=== PATIENT | female | born 1975 ===

== ENCOUNTER 2016-10-03 12:22 | Inpatient (IN) | payer OTHER ==
[2016-10-03 18:34] VITALS: BMI 23.3
--- NOTE | 2016-10-03 19:21 | HP ---
CIWA Score - CIWA Score Nausea/Vomitin-Mild Nausea/No Vomiting Muscle Tremors: 4-Moderate,w/Arms Extend Anxiety: 5 Agitation: 5 Paroxysmal Sweats: 2 Orientation: 3-Disoriented Date>2 days Tacttile Disturbances: 0-None Auditory Disturbances: 0-None Visual Disturbances: 0-None Headache: 0-None Present CIWA-Ar Total Score: 20 Admission ROS BHS - HPI Chief Complaint: withdrawal sx Allergies/Adverse Reactions: Allergies Allergy/AdvReac Type Severity Reaction Status Date / Time No Known Allergies Allergy Verified 10/03/16 21:34 History of Present Illness: 41 years old female with long history of alcohol nicotine dependence denies medical denies mental illness is admitted to detox Exam Limitations: No Limitations - Ebola screening Have you traveled outside of the country in the last 21 days: No Have you had contact with anyone from an Ebola affected area: No Have you been sick,other than usual withdrawal symptoms: No Do you have a fever: No - Review of Systems Constitutional: Chills, Changes in sleep, Weight Stable EENT: reports: No Symptoms Reported Respiratory: reports: No Symptoms reported Cardiac: reports: No Symptoms Reported GI: reports: Nausea, Poor Fluid Intake, Abdominal cramping : reports: No Symptoms Reported Musculoskeletal: reports: No Symptoms Reported Integumentary: reports: Change in Color (waist down), Erythema, Rash Neuro: reports: Tremors Endocrine: reports: No Symptoms Reported Hematology: reports: No Symptoms Reported Psychiatric: reports: Judgement Intact, Depressed Other Systems: Reviewed and Negative Patient History - Patient Medical History Hx Anemia: No Hx Asthma: No Hx Chronic Obstructive Pulmonary Disease (COPD): No Hx Cancer: No Hx Cardiac Disorders: No Hx Congestive Heart Failure: No Hx Hypertension: No Hx Hypercholesterolemia: No Hx Pacemaker: No HX Cerebrovascular Accident: No Hx Seizures: No Hx Dementia: No Hx Diabetes: No Hx Gastrointestinal Disorders: No Hx Liver Disease: No Hx Genitourinary Disorders: No Hx Sexually Transmitted Disorders: No Hx Renal Disease (ESRD): No Hx Thyroid Disease: No Hx Human Immunodeficiency Virus (HIV): No Hx Hepatitis C: No Hx Depression: Yes Hx Suicide Attempt: No Hx Bipolar Disorder: No Hx Schizophrenia: No - Patient Surgical History Past Surgical History: Yes Hx Section: Yes Anesthesia Reaction: No - PPD History Previous Implant?: Yes Documented Results: Negative w/o proof Implanted On Prior [facility] Admission?: No PPD to be Administered?: Yes - Reproductive History Patient is a Female of Child Bearing Age (11 -55 yrs old): Yes Last Menstrual Period: 09/02/16 Patient : No - Smoking Cessation Smoking history: Current every day smoker Have you smoked in the past 12 months: Yes Aproximately how many cigarettes per day: 20 Cigars Per Day: 0 Hx Chewing Tobacco Use: No Initiated information on smoking cessation: Yes 'Breaking Loose' booklet given: 10/03/16 - Substance & Tx. History Hx Alcohol Use: Yes Hx Substance Use: No Substance Use Type: Alcohol Hx Substance Use Treatment: Yes - Substances Abused Alcohol Route: Oral Frequency: Daily Amount used: [id number] Age of first use: 37 Date of Last Use: 10/03/16 Family Disease History - Family Disease History Family Disease History: Other: Father (no contact) Other Family History: only child Admission Physical Exam BHS - Vital Signs Vital Signs: Vital Signs - 24 hr 10/03/16 18:32 Temperature 98.3 F Pulse Rate 112 H Respiratory 18 Rate Blood Pressure 142/89 - Physical General Appearance: Yes: Appropriately Dressed, Moderate Distress, Thin, Tremorous, Irritable, Sweating, Anxious HEENTM: Yes: Hearing grossly Normal, Normal ENT Inspection, Normocephalic, Normal Voice Respiratory: Yes: Chest Non-Tender, Lungs Clear, Normal Breath Sounds, No Respiratory Distress, No Accessory Muscle Use Neck: Yes: Supple, Trachea in good position Breast: Yes: Breasts Symetrical Cardiology: Yes: Regular Rhythm, S1, S2, Tachycardia Abdominal: Yes: Non Tender, Soft Genitourinary: Yes: Within Normal Limits Back: Yes: Normal Inspection Musculoskeletal: Yes: full range of Motion, Gait Steady Extremities: Yes: Normal Range of Motion, Tremors, Erythema (waist down) Neurological: Yes: Alert, Motor Strength 5/5, Normal Response, Depressed Affect Integumentary: Yes: Warm, Erythema, Other (flaky waist down) Lymphatic: Yes: Within Normal Limits - Diagnostic (1) Alcohol dependence with uncomplicated withdrawal Status: Acute (2) Contact lens overwear Status: Chronic Qualifiers: Qualified Code(s): H18.823 - Corneal disorder due to contact lens, bilateral (3) Nicotine dependence Status: Acute Qualifiers: Qualified Code(s): F17.213 - Nicotine dependence, cigarettes, with withdrawal (4) Skin abrasion Status: Acute Comment: wast down multiple flaky demarkated (5) Post- depression Status: Chronic Cleared for Admission [facility] - Detox or Rehab [facility] Level of Care: Medically Managed Detox Regimen/Protocol: Librium [facility] Breath Alcohol Content Breath Alcohol Content: 0 Urine Pregancy Test - Result Urine Test Results: Negative- NO Line Present Urine Drug Screen - Results Drug Screen Negative: Yes
[2016-10-03] MEDS ORDERED: P-EPHED 60MG/TRIPROLIDI 2.5MG TABLET PO PRN (19:39)
[2016-10-03] MEDS ORDERED: MAGNESIUM CITRATE 300 ML BOTTLE PO PRN (19:39)
[2016-10-03] MEDS ORDERED: MAGNESIUM HYDROX 2400MG/30ML ORAL SUSPENSION 30 ML CUP PO PRN (19:39)
[2016-10-03] MEDS ORDERED: chlordiazePOXIDE HCL 25 MG CAPSULE PO PRN (19:39)
[2016-10-03] MEDS ORDERED: hydrOXYzine PAMOATE 50 MG CAPSULE (FP) PO PRN (19:39)
[2016-10-03] MEDS ORDERED: ACETAMINOPHEN 325 MG TABLET (FP) PO PRN (19:39)
[2016-10-03] MEDS ORDERED: LOPERAMIDE HCL 2 MG CAPSULE PO PRN (19:39)
[2016-10-03] MEDS ORDERED: guaiFENesin/D-METHORPHAN HB 10 ML UNIT-DOSE CUPS PO PRN (19:39)
[2016-10-03] MEDS ORDERED: MAG HYDROX/AL HYDROX/SIMETH 30 ML UNIT-DOSE CUP PO PRN (19:39)
[2016-10-03] MEDS ORDERED: MENTHOL/PHENOL 1 EACH UD MM PRN (19:39)
[2016-10-03] MEDS ORDERED: NICOTINE POLACRILEX 4 MG GUM BC PRN (19:39)
[2016-10-03] MEDS ORDERED: chlordiazePOXIDE HCL 25 MG CAPSULE PO ONE (19:39)
[2016-10-03] MEDS ORDERED: diphenhydrAMINE HCL 50 MG CAPSULE PO PRN (19:39)
[2016-10-03] MEDS ORDERED: IBUPROFEN 400 MG TABLET (FP) PO PRN (19:39)
[2016-10-03] MEDS ORDERED: COLLOIDAL OATMEAL 1 BAR EACH TP PRN (19:43)
--- NOTE | 2016-10-03 21:16 | PN ---
[facility] Progress Note Note: response to medical emergency received report that the patient had seizure, head on ground, blood on white sheets noted, pressure applied observed patient eyes open, single simple word, attempted lift head up, around 7 cm half mood shape soft swelling at junction of temporal and occipiital bp 134/88 ap 114 911 was called, report provided to er
[2016-10-03] MEDS ORDERED: THIAMINE HCL 100 MG TABLET (FP) PO SCH (22:00)
[2016-10-03] MEDS ORDERED: AMOXICILLIN 500 MG CAPSULE (FP) PO SCH (22:00)
[2016-10-03] MEDS ORDERED: HYDROCORTISONE 1% TOPICAL OINT 30 GM TUBE TP SCH (22:00)
[2016-10-03] MEDS ORDERED: MINERAL OIL/PETROLAT/WATER TOPICAL CREAM 113 GM JAR TP SCH (22:00)
[2016-10-03 22:58] LABS: URINE APPEARANCE CLEAR; URINE BILIRUBIN NEGATIVE (NEGATIVE); URINE BLOOD NEGATIVE (NEGATIVE); URINE COLOR LTYELLOW; URINE GLUCOSE (UA) NEGATIVE (NEGATIVE); URINE KETONE NEGATIVE (NEGATIVE); URINE NITRITE NEGATIVE (NEGATIVE); URINE PROTEIN NEGATIVE (NEGATIVE); URINE UROBILINOGEN NEGATIVE E.U./dl (0.2-1.0)
[2016-10-03] MEDS ORDERED: chlordiazePOXIDE HCL 25 MG CAPSULE PO SCH (23:00)
[2016-10-03 23:09] LABS: URINE LEUK ESTERASE TRACE (NEGATIVE)
[2016-10-03 23:10] LABS: URINE BACTERIA RARE /hpf (NONE SEEN); URINE MUCUS RARE; URINE RBC <1 /hpf (0-3); URINE WBC <1 /hpf (3-5)
[2016-10-04 00:20] VITALS: BP 152/92; PULSE 132; TEMP 98
[2016-10-04] MEDS ORDERED: PRENATAL VITAMINS W/ FOLIC ACID TABLET (FP) PO SCH (10:00)
[2016-10-04] MEDS ORDERED: NICOTINE 21 MG/24 HOURS TOPICAL PATCH TD SCH (10:00)
--- NOTE | 2016-10-04 11:24 | EKG ---
Test Reason : Blood Pressure : / mmHG Vent. Rate : 128 BPM Atrial Rate : 128 BPM P-R Int : 158 ms QRS Dur : 074 ms QT Int : 298 ms P-R-T Axes : 052 045 023 degrees QTc Int : 435 ms SINUS TACHYCARDIA SEPTAL INFARCT , AGE UNDETERMINED ABNORMAL ECG NO PREVIOUS ECGS AVAILABLE Confirmed by SAMPSON GRANT MD ([id number]) on 10/04/2016 11:23:51 AM Referred By: Confirmed By:SAMPSON GRANT MD
[2016-10-04] MEDS ORDERED: chlordiazePOXIDE HCL 25 MG CAPSULE PO SCH (23:00)
[2016-10-05] MEDS ORDERED: chlordiazePOXIDE 5 MG CAPSULE PO SCH (23:00)
[2016-10-06] MEDS ORDERED: chlordiazePOXIDE HCL 10 MG CAPSULE PO SCH (23:00)
--- NOTE | 2016-10-29 10:32 | DS ---
[facility] Detox Discharge Summary Admission Date: 10/03/16 Discharge Date: 10/29/16 - History Present History: Alcohol Dependence - Physical Exam Results Vital Signs: Vital Signs Temperature 98 F 10/03/16 20:34 Pulse Rate 132 H 10/03/16 20:34 Respiratory Rate 18 10/03/16 20:34 Blood Pressure 152/92 10/03/16 20:34 O2 Sat by Pulse Oximetry (%) - Treatment Hospital Course: Detox Protocol Followed Patient has Accepted a Rehab Referral to: pt transfered to ED /[facility] after sz with fall and injury to head - Medication Discharge Medications: Ambulatory Orders NK [No Known Home Medication] 10/09/16 - Diagnosis (1) Alcohol dependence with uncomplicated withdrawal Status: Chronic (2) Nicotine dependence Status: Chronic Qualifiers: Nicotine product type: cigarettes Substance use status: in withdrawal Qualified Code(s): F17.213 - Nicotine dependence, cigarettes, with withdrawal - AMA Did Patient Leave Against Medical Advice: No
== END 2016-10-04 07:00 | disposition short-term general hospital (02) | DRG 775 ==
LOC: YASAS 12:22 → Y6N 19:52
PROVIDERS: ADMIT Internal Medicine Addiction Medicine; ATTEND Internal Medicine Addiction Medicine
PROC: HZ2ZZZZ Detoxification Services for Substance Abuse Treatment (ICD-10-PCS; principal; 2016-10-04)
DX: F10.230 Alcohol dependence with withdrawal, uncomplicated (principal); F17.213 Nicotine dependence, cigarettes, with withdrawal; F53 Mental and behavioral disorders associated with the puerperium, not elsewhere classified; H18.823 Corneal disorder due to contact lens, bilateral; S30.811A Abrasion of abdominal wall, initial encounter; X58.XXXA Exposure to other specified factors, initial encounter; Y93.9 Activity, unspecified; Y92.89 Other specified places as the place of occurrence of the external cause
CPT/HCPCS: 81003; 81015; 93005; 93010

== ENCOUNTER 2016-10-03 21:24 | Inpatient (IN) | payer OTHER ==
[2016-10-03] MEDS ORDERED: FOLIC ACID INJECTION - 1 MG, THIAMINE HCL 100 MG, MULTIVIT INJECTION ADULT 10 ML in SOD... IVPB ONE (21:28)
--- NOTE | 2016-10-03 21:29 | PDOC ---
History of Present Illness - General History Source: Patient, EMS Exam Limitations: No Limitations - History of Present Illness Initial Comments: 10/03/16 21:41 The patient is a 41 year old female with significant past medical history of etoh abuse who presents to the ED BIBA from [facility] for head laceration s/p fall. As per EMS, at bedside, they were informed by staff members that patient was talking with another patient when she was noted to have seizure-like activity, fell back hitting her head and sustaining a head laceration to the back of her head. No tongue biting or bladder/bowel incontinence were noted and reported by EMS. No h/o of seizure disorder. According to the EMS, patient initially was aware of the incident, but shortly after she was noted to be confused and was asking EMS why she was in the ER. At time of evaluation, patient has no complaints or pain. The patient denies fever, chills, cough, SOB, chest pain, and palpitations. The patient denies abdominal pain, nausea, vomiting, and diarrhea. Allergies: NKDA Social History: Current smoker (ppd). Etoh use. No drug use reported. Past Surgical History: None reported PCP: None reported <Julia Cotton - Last Filed: 10/04/16 02:30> <Larry Rubio - Last Filed: 10/04/16 04:11> - General Stated Complaint: INJURY Past History <Julia Cotton - Last Filed: 10/04/16 02:30> - Past Medical History Anemia: No Asthma: No Cancer: No Cardiac Disorders: No CVA: No COPD: No CHF: No Dementia: No Diabetes: No GI Disorders: No Disorders: No HTN: No Hypercholesterolemia: No Kidney Stones: No Liver Disease: No Suicide Attempt (Hx): No Seizures: No Thyroid Disease: No - Surgical History Abdominal Surgery: No Appendectomy: No Cardiac Surgery: No Cholecystectomy: No Lung Surgery: No Neurologic Surgery: No Orthopedic Surgery: No - Psycho/Social/Smoking Cessation Hx Anxiety: No Suicidal Ideation: No Smoking History: Current every day smoker Have you smoked in the past 12 months: Yes Number of Cigarettes Smoked Daily: 20 Cigars Per Day: 0 'Breaking Loose' booklet given: 10/03/16 Hx Alcohol Use: Yes Drug/Substance Use Hx: No Substance Use Type: Alcohol Hx Substance Use Treatment: Yes <Larry Rubio - Last Filed: 10/04/16 04:11> - Past Medical History Allergies/Adverse Reactions: Allergies Allergy/AdvReac Type Severity Reaction Status Date / Time No Known Allergies Allergy Verified 10/03/16 21:34 Home Medications: Ambulatory Orders NK [No Known Home Medication] 10/03/16 Review of Systems - Review of Systems Able to Perform ROS?: Yes Comments:: 10/03/16 21:42 GENERAL/CONSTITUTIONAL: No fever or chills. No weakness. HEAD, EYES, EARS, NOSE AND THROAT: No change in vision. No ear pain or discharge. No sore throat. CARDIOVASCULAR: No chest pain or shortness of breath. RESPIRATORY: No cough, wheezing, or hemoptysis. GASTROINTESTINAL: No nausea, vomiting, diarrhea or constipation. GENITOURINARY: No dysuria, frequency, or change in urination. MUSCULOSKELETAL: No joint or muscle swelling or pain. No neck or back pain. SKIN: No rash NEUROLOGIC: +seizure No headache, vertigo, or change in strength/sensation. ENDOCRINE: No increased thirst. No abnormal weight change. HEMATOLOGIC/LYMPHATIC: No anemia, easy bleeding, or history of blood clots. ALLERGIC/IMMUNOLOGIC: No hives or skin allergy. <Julia Cotton - Last Filed: 10/04/16 02:30> *Physical Exam - Vital Signs Last Vital Signs Temp Pulse Resp BP Pulse Ox 99.3 F 132 H 14 145/98 100 10/03/16 21:35 10/03/16 21:35 10/03/16 21:35 10/03/16 21:35 10/03/16 21:35 - Physical Exam Comments: 10/04/16 02:30 GENERAL: Awake, alert, and fully oriented, in no acute distress HEAD: 4 cm midline linear laceration well approximated 8 galindo. [place] intact. EYES: PERRLA, EOMI, sclera anicteric, conjunctiva clear. No racoon or bell signs. No depression. ENT: Auricles normal inspection, hearing grossly normal, nares patent, oropharynx clear without exudates. No hypotympanum. Moist mucosa NECK: Normal ROM, supple, no lymphadenopathy, JVD, or masses LUNGS: Breath sounds equal, clear to auscultation bilaterally. No wheezes, and no crackles HEART: Regular rate and rhythm, normal S1 and S2, no murmurs, rubs or gallops ABDOMEN: Soft, nontender, normoactive bowel sounds. No guarding, no rebound. No masses EXTREMITIES: Normal range of motion, no edema. No clubbing or cyanosis. No cords, erythema, or tenderness NEUROLOGICAL: Cranial nerves II through XII grossly intact. Normal speech. SKIN: Warm, Dry, normal turgor, no rashes noted. <Julia Cotton - Last Filed: 10/04/16 02:30> Procedures - Laceration/Wound Repair Upper Medial Head Wound Length: 2.6 to 5.0 cm Wound Explored: clean, no foreign body present Wound's Depth, Shape: superficial, linear Irrigated w/ Saline: Yes Betadine Prep: No Anesthesia: 2% Lidocaine Amount of Anesthetic (ccs): 10 Wound Debrided: minimal Wound Repaired With: [place] Number of Sutures: 8 Layer Closure: No <Larry Rubio - Last Filed: 10/04/16 04:11> Heart Score/ECG Review - ECG Impressions Comment:: 10/03/16 21:42 Sinus tachycardia @128bpm Q wave noted in V2 and V3 <Julia Cotton - Last Filed: 10/04/16 02:30> ED Treatment Course - LABORATORY CBC & Chemistry Diagram: 10/03/16 22:15 10/03/16 22:15 - RADIOLOGY Radiograph Interpretation: 10/04/16 01:38 EXAM: CT HEAD WITHOUT CONTRAST Reviewed by Imaging ordnance truck installation supervisor: No acute brain parenchymal abnormality. No hemorrhage, mass or acute territorial infarct. Laceration and swelling right parietal scalp. No skull fracture. Clear visualized paranasal sinuses. Visualized mastoid air cells clear. <Julia Cotton - Last Filed: 10/04/16 02:30> - LABORATORY CBC & Chemistry Diagram: 10/03/16 22:15 10/03/16 22:15 <Larry Rubio - Last Filed: 10/04/16 04:11> Medical Decision Making - Medical Decision Making 10/04/16 00:27 41yo F with alcoholism and sent from [facility] after having what was noted to be a tonic/clonic seizure with fall and laceration of the head. She is AOx3 at this time. She will have CT head and baseline labs; will observe and likely discharge. 10/04/16 02:55 Evaluation is negative; laceration is repaired; no involvement of the galea; she has significant tremulousness which was addressed with ativan and librium. She is now endorsed to the hospitalist; hydrated, thiamine/folate/ multivitamins. <Larry Rubio - Last Filed: 10/04/16 04:11> *DC/Admit/Observation/Transfer - Attestations Scribe Attestion: 10/03/16 21:43 Documentation prepared by Julia Cotton, acting as biomedical service engineer for Larry Rubio MD, <Julia Cotton - Last Filed: 10/04/16 02:30> - Discharge Dispostion Admit: Yes Decision to Admit order Date/Time: 10/04/16 02:59 - Attestations Physician Attestion: 10/04/16 02:59 I, Dr. Larry Rubio MD, attest that this document has been prepared under my direction and personally reviewed by me in its entirety. I further attest, that it accurately reflects all work, treatment, procedures and medical decision -making performed by me. <Larry Rubio - Last Filed: 10/04/16 04:11> Diagnosis at time of Disposition: Seizure, Dehydration, Psoriasis Alcohol withdrawal Qualifiers: Complication of substance-induced condition: uncomplicated Qualified Code(s): F10.230 - Alcohol dependence with withdrawal, uncomplicated - Discharge Dispostion Condition at time of disposition: Guarded
[2016-10-03 22:30] LABS: MCH 25.5 pg (25.7-33.7); MCHC 31.9 g/dl (32.0-36.0); MEAN CELL VOLUME 79.8 fl (80-96); MEAN PLT VOLUME 6.3 fl (7.5-11.1); PLATELET COUNT 510 K/MM3 (134-434); RDW 26.6 % (11.6-15.6); WHITE BLOOD COUNT 10.2 K/mm3 (4.0-10.0)
[2016-10-03 23:04] LABS: INR 0.94 (0.82-1.09); PROTHROMBIN TIME (PATIENT) 10.3 SEC (9.98-11.88)
[2016-10-03 23:06] LABS: ALK PHOS 137 U/L (45-117); ANION GAP 11 (8-16); BILIRUBIN,TOTAL 0.3 mg/dL (0.2-1.0); CALCIUM 8.6 mg/dL (8.5-10.1); CO2 22 mmol/L (21-32); COCKROFT - GAULT 141.6865; CREATININE 0.5 mg/dL (0.55-1.02); GLUCOSE,RANDOM 104 mg/dL (74-106); MAGNESIUM 2.3 mg/dL (1.8-2.4); PHOSPHOROUS 2.8 mg/dL (2.5-4.9); SGOT/AST 110 U/L (15-37); SGPT/ALT 64 U/L (12-78); TROPONIN I < 0.02 ng/ml (0.00-0.05)
[2016-10-04 00:14] LABS: URINE APPEARANCE CLEAR; URINE BILIRUBIN NEGATIVE (NEGATIVE); URINE COLOR STRAW; URINE GLUCOSE (UA) NEGATIVE (NEGATIVE); URINE KETONE NEGATIVE (NEGATIVE); URINE NITRITE NEGATIVE (NEGATIVE); URINE PROTEIN NEGATIVE (NEGATIVE); URINE UROBILINOGEN NEGATIVE E.U./dl (0.2-1.0)
[2016-10-04 00:31] LABS: URINE BLOOD 2+ (NEGATIVE); URINE LEUK ESTERASE 1+ (NEGATIVE)
[2016-10-04 00:36] LABS: URINE BACTERIA RARE /hpf (NONE SEEN); URINE RBC <1 /hpf (0-3); URINE WBC <1 /hpf (3-5)
[2016-10-04] MEDS ORDERED: LORAZEPAM CARPU-JECT 2 MG/ML DISP.SYRIN IVPUSH ONE (01:21)
[2016-10-04] MEDS ORDERED: chlordiazePOXIDE HCL 25 MG CAPSULE PO ONE (01:22)
[2016-10-04] MEDS ORDERED: LORAZEPAM CARPU-JECT 2 MG/ML DISP.SYRIN ONE (01:24)
[2016-10-04] MEDS ORDERED: chlordiazePOXIDE HCL 25 MG CAPSULE ONE (01:27)
[2016-10-04] MEDS ORDERED: LIDOCAINE HCL 2% (20ML MULTI-DOSE VIAL) NR ONE (02:10)
--- NOTE | 2016-10-04 03:23 | HP ---
CHIEF COMPLAINT: seizure PCP: none HISTORY OF PRESENT ILLNESS: 41 yr old woman with ETOH abuse bibems from [facility] after sustaining a sudden general tonic convulsions lasting about 1min followed by 30secs of unresponsiveness. at 8:34pm while she was being walked to her room on the 6th floor. recalls day's events and walking down the hallway. doesn't think she had a seizure, feels that she had "passed out." She was being admitted for etoh detox. Her last drink was 2pm on friday. She drinks 15-16 12oz cans of beers daily.Has not been eating for the past few days due to drinking. Also complains of rash from her groin to her lower legs b/l since Friday and non -bloody diarrhea after every meal for past few weeks. Denies poor appetite or weightloss/gain. Rash started after she had slept on a leather couch and wore new pants on Friday. denies hx of seizure d/o, past seizures post-alcohol use, fevers, chills, vomiting, chest pain, palpitations, headache, hematuria, constipation, animal exposure, new lotions, itching of the rash, diplopia, lightheadedness. LMP in 08/2016 lasts 3-4 days., normal flow, regular frequency ER course was notable for: (1)head CT (2)galindo to laceration (3) banana bag Recent Travel: none PAST MEDICAL HISTORY: denies past hospitalization or diagnosis. [place] age 16. Is unsure about vaccination history PAST SURGICAL HISTORY: denies Social History: lives with mother and daughter(Joanne), and in a relationship with boyfriend. 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 was a social drinking prior to 3yrs for the past 10 yrs Drugs: denies Family History: father with alcoholism Allergies No Known Allergies Allergy (Verified 10/03/16 21:34) HOME MEDICATIONS: Home Medications Medication Instructions Recorded NK [No Known Home Medication] 10/03/16 REVIEW OF SYSTEMS CONSTITUTIONAL: Absent: fever, chills, diaphoresis, generalized weakness, malaise, loss of appetite, weight change HEENT: Absent: rhinorrhea, nasal congestion, throat pain, throat swelling, difficulty swallowing, mouth swelling, ear pain, eye pain, visual changes CARDIOVASCULAR: Absent: chest pain, syncope, palpitations, irregular heart rate, lightheadedness , peripheral edema RESPIRATORY: Absent: cough, shortness of breath, dyspnea with exertion, orthopnea, wheezing, stridor, hemoptysis GASTROINTESTINAL: Present: diarrhea Absent: abdominal pain, abdominal distension, nausea, vomiting, constipation, melena, hematochezia GENITOURINARY: Absent: dysuria, frequency, urgency, hesitancy, hematuria, flank pain, genital pain MUSCULOSKELETAL: Absent: myalgia, arthralgia, joint swelling, back pain, neck pain SKIN: Present: rash, Absent:itching, pallor HEMATOLOGIC/IMMUNOLOGIC: Absent: easy bleeding, easy bruising, lymphadenopathy, frequent infections ENDOCRINE: Absent: unexplained weight gain, unexplained weight loss, heat intolerance, cold intolerance NEUROLOGIC: Absent: headache, focal weakness or paresthesias, dizziness, unsteady gait, seizure, mental status changes, bladder or bowel incontinence PSYCHIATRIC: Absent: anxiety, depression, suicidal or homicidal ideation, hallucinations. PHYSICAL EXAMINATION Vital Signs - 24 hr 10/03/16 21:35 Temperature 99.3 F Pulse Rate 132 H Respiratory 14 Rate Blood Pressure 145/98 O2 Sat by Pulse 100 Oximetry (%) GENERAL: Awake, alert, and fully oriented, in no acute distress. resting on her right side HEAD: Normalocephalic with 6cm vertical laceration in right occiput, galindo in place, mild ttp. EYES: Pupils equal, round and reactive to light, extraocular movements intact, sclera anicteric, conjunctiva clear. No lid lag. no periorbital ecchymosis. EARS, NOSE, THROAT: Ears normal, nares patent, oropharynx clear without exudates. poor oral hygeine, poor dentition. no tongue laceration, no oral lesions. Moist mucous membranes. angular chelosis on left NECK: Normal range of motion, supple without lymphadenopathy, JVD, or masses. right EJ in place. LUNGS: Breath sounds equal, clear to auscultation bilaterally. No wheezes, and no crackles. No accessory muscle use. HEART: Regular rate and rhythm, normal S1 and S2 without murmur, rub or gallop. ABDOMEN: Soft, nontender, not distended, normoactive bowel sounds, no guarding, no rebound, no masses. skin with diffuse punctate scabs, no excoriations, no erythema, no edema. MUSCULOSKELETAL: Normal range of motion at neck, b/l shoulders, elbows/wrists/ fingers, knees. Left hip with decreased rom secondary to pain from rash. No bony deformities or tenderness. No CVA tenderness. UPPER EXTREMITIES: 2+ pulses, warm, well-perfused. No cyanosis. No clubbing. No peripheral edema. LOWER EXTREMITIES: 2+ pulses, warm, well-perfused. No calf tenderness. No peripheral edema. NEUROLOGICAL: Cranial nerves II-XII intact. Normal speech. facial symmetry. sensation in face, UE, back, LE intact. strength 5/5 in shoulders, elbows, wrists, hands,hips, knees, ankle b/l 5/5. PSYCHIATRIC: Cooperative. Good eye contact. Appropriate mood and affect. SKIN: Warm, normal capillary refill. dry skin peeling rash from b/l inguinal region medial thighs to b/l knees, there are horizontal areas of skin breakdown with scabbing. b/l gluteal regions into [place] region with dry peeling skin, few areas with demuted skin, some scant thick white discharge from 0.5x0.5cm ulcers in medial thighs. left lateral lower leg with nonblanching erythema, few diffuse punctate scabs. left scapula region with dry cracking/peeling skin that is diffuse without discharge or erythema. nikolsky's sign negative. Laboratory Results - last 24 hr 10/03/16 10/03/16 10/03/16 22:15 22:15 22:15 WBC 10.2 H RBC 3.40 L Hgb 8.7 L Hct 27.1 L MCV 79.8 L MCHC 31.9 L RDW 26.6 H Plt Count 510 H MPV 6.3 L Neutrophils % 75.0 Lymphocytes % 17.0 Monocytes % 4.0 Eosinophils % 1.0 Basophils % 0.0 Band Neutrophils 3.0 INR 0.94 Sodium Potassium Chloride Carbon Dioxide Anion Gap BUN Creatinine Creat Clearance w eGFR POC Glucometer Random Glucose Serum Osmolality Lactic Acid Calcium Phosphorus Magnesium Total Bilirubin AST ALT Alkaline Phosphatase Creatine Kinase 108 Troponin I < 0.02 Total Protein Albumin Lipase Serum , Qual Urine Color Urine Appearance Urine pH Ur Specific [place] Urine Protein Urine Glucose (UA) Urine Ketones Urine Blood Urine Nitrite Urine Bilirubin Urine Urobilinogen Ur Leukocyte Esterase Urine RBC Urine WBC Ur Epithelial Cells Urine Bacteria 10/03/16 10/03/16 10/03/16 22:15 22:15 22:15 WBC RBC Hgb Hct MCV MCHC RDW Plt Count MPV Neutrophils % Lymphocytes % Monocytes % Eosinophils % Basophils % Band Neutrophils INR Sodium 135 L Potassium 4.1 Chloride 102 Carbon Dioxide 22 Anion Gap 11 BUN 3 L Creatinine 0.5 L Creat Clearance w eGFR > 60 POC Glucometer Random Glucose 104 Serum Osmolality 279 Lactic Acid 1.437 Calcium 8.6 Phosphorus 2.8 Magnesium 2.3 Total Bilirubin 0.3 AST 110 H ALT 64 Alkaline Phosphatase 137 H Creatine Kinase Troponin I Total Protein 7.0 Albumin 3.0 L Lipase 129 Serum , Qual Urine Color Urine Appearance Urine pH Ur Specific [place] Urine Protein Urine Glucose (UA) Urine Ketones Urine Blood Urine Nitrite Urine Bilirubin Urine Urobilinogen Ur Leukocyte Esterase Urine RBC Urine WBC Ur Epithelial Cells Urine Bacteria 10/03/16 10/03/16 10/03/16 22:15 22:17 23:47 WBC RBC Hgb Hct MCV MCHC RDW Plt Count MPV Neutrophils % Lymphocytes % Monocytes % Eosinophils % Basophils % Band Neutrophils INR Sodium Potassium Chloride Carbon Dioxide Anion Gap BUN Creatinine Creat Clearance w eGFR POC Glucometer [id number] Random Glucose Serum Osmolality Lactic Acid Calcium Phosphorus Magnesium Total Bilirubin AST ALT Alkaline Phosphatase Creatine Kinase Troponin I Total Protein Albumin Lipase Serum , Qual Negative Urine Color Straw Urine Appearance Clear Urine pH 6.0 Ur Specific [place] 1.002 Urine Protein Negative Urine Glucose (UA) Negative Urine Ketones Negative Urine Blood 2+ H Urine Nitrite Negative Urine Bilirubin Negative Urine Urobilinogen Negative Ur Leukocyte Esterase 1+ H Urine RBC <1 Urine WBC <1 Ur Epithelial Cells Rare Urine Bacteria Rare ASSESSMENT/PLAN: 41 yr old woman hx of ETOH abuse BIBEMS from [facility] detox for seizure. #Seizure - suspicious for ETOH w/d, head CT negative for hemorrhage, mass, fracture - ativan 2mg Ivpb q6hr prn - neuro consult in the morning - aspiration and fall precautions #head laceration - galindo placed 10/03/2016 in ED - keep area clean dry - bacitracin daily - monitor for signs of infection - remove galindo in 6 days, re-approximate with steri-strips #ETOH w/d - CIWA 1, however given seizure will start librium protocol - librium protocol - thiamine, folate daily - ETOH level pending - IVF NS #Leucocytosis - blood cx pending, likely from skin rash vs reactive, r/o aspiration pna - chest xray in the AM - clindamycin 600mg TID po #Microcytic anemia - iron studies - fobt - repeat labs in the AM #Rash - suspicious for pellagra given poor diet, vs contact dermatitis from new clothes/leather couch - bacitracin BID daily, non-adherent dressing to areas with discharge - consider derm consult DVT - low risk, given recent head trauma, hold off on ac diet- regular Visit type - Emergency Visit Emergency Visit: Yes ED Registration Date: 10/04/16 Care time: The patient presented to the Emergency Department on the above date and was hospitalized for further evaluation of their emergent condition. - New Patient This patient is new to me today: Yes Date on this admission: 10/04/16 - Critical Care Critical Care patient: No
[2016-10-04] MEDS ORDERED: FOLIC ACID INJECTION - 1 MG, THIAMINE HCL 100 MG, MULTIVIT INJECTION ADULT 10 ML in SOD... IVPB ONE (04:18)
--- NOTE | 2016-10-04 04:19 | PN ---
<Katy Farris - Last Filed: 10/04/16 04:18> Teaching Attending Note Name of Resident: Derick Dickson <Kenzie Powers - Last Filed: 10/04/16 05:05> Teaching Attending Note ATTENDING PHYSICIAN STATEMENT I saw and evaluated the patient. I reviewed the resident's note and discussed the case with the resident. I agree with the resident's findings and plan as documented. SUBJECTIVE: 41 yo F with PMHx of EtOH abuse who presents to the ED from [facility] s/p seizure. As witnessed by staff members, patient was noted to have seizure-like activity and fell back hitting her head. Patient reported to having a head laceration. EMS denies tongue-biting, other injury, or bladder/bowel incontinence. After the incident, the patient was initially aware of the situation however became confused. Patient does not have a hx of seizure disorders and presents to the ED for further evaluation. Patient additionally reports rash to L shoulder and LLE, radiating from her gluteal region to her L knee. Patient reports diarrhea after each meal ( nonbloody, nonbilious). Patient denies any recent weightloss or weight gain. Patient denies any fevers or chills. She denies chest pain, headache or dizziness. She denies fever, chills, nausea, vomit or constipation. She denies dysuria, frequency, urgency or hematuria. PMHx: as per HPI PSHx: None Social Hx:Current smoker (ppd). Etoh use. No drug use reported. Occupation: [employer] Family Hx: Father with alcohol abuse. Allergies: NKA OBJECTIVE: Last Vital Signs Temp Pulse Resp BP Pulse Ox 99.3 F 132 H 14 145/98 100 10/03/16 21:35 10/03/16 21:35 10/03/16 21:35 10/03/16 21:35 10/03/16 21:35 GENERAL: Awake, alert, and fully oriented, in no acute distress. +Disheveled and unkempt HEENT: Atraumatic. PERRLA, EOMI. Moist mucosa. No JVD. +Occipital laceration approximately 4cm longitudinal with galindo. +Pupils slightly dilated but reactive to light and accommodation. Oral mucosa moist and no laceration. Tongue is smooth and no laceration. + Right EJ. LUNGS: No distress, speaks full sentences, clear to auscultation bilaterally HEART: +Tachycardic. Normal S1 and S2, no murmurs, rubs or gallops, peripheral pulses normal and equal bilaterally. ABDOMEN: Soft, nontender, normoactive bowel sounds. No guarding, no rebound. No masses EXTREMITIES: Normal inspection, Normal range of motion, no edema. No clubbing or cyanosis. NEUROLOGICAL: Cranial nerves II through XII grossly intact. Normal speech, normal gait, no focal sensorimotor deficits SKIN: Angular chelosis. +Inguinal and gluteal rash, dry flaking. LE slight erythematous with punctuated scab areas. Warm, Dry, normal turgor, no rashes or lesions noted. CBCD WBC 10.2 K/mm3 (4.0-10.0) H 10/03/16 22:15 RBC 3.40 M/mm3 (3.60-5.2) L 10/03/16 22:15 Hgb 8.7 GM/dL (10.7-15.3) L 10/03/16 22:15 Hct 27.1 % (32.4-45.2) L 10/03/16 22:15 MCV 79.8 fl (80-96) L 10/03/16 22:15 MCHC 31.9 g/dl (32.0-36.0) L 10/03/16 22:15 RDW 26.6 % (11.6-15.6) H 10/03/16 22:15 Plt Count 510 K/MM3 (134-434) H 10/03/16 22:15 MPV 6.3 fl (7.5-11.1) L 10/03/16 22:15 CMP Sodium 135 mmol/L (136-145) L 10/03/16 22:15 Potassium 4.1 mmol/L (3.5-5.1) 10/03/16 22:15 Chloride 102 mmol/L (98-107) 10/03/16 22:15 Carbon Dioxide 22 mmol/L (21-32) 10/03/16 22:15 Anion Gap 11 (8-16) 10/03/16 22:15 BUN 3 mg/dL (7-18) L 10/03/16 22:15 Creatinine 0.5 mg/dL (0.55-1.02) L 10/03/16 22:15 Creat Clearance w eGFR > 60 (>60) 10/03/16 22:15 Calcium 8.6 mg/dL (8.5-10.1) 10/03/16 22:15 Total Bilirubin 0.3 mg/dL (0.2-1.0) 10/03/16 22:15 AST 110 U/L (15-37) H 10/03/16 22:15 ALT 64 U/L (12-78) 10/03/16 22:15 Alkaline Phosphatase 137 U/L (45-117) H 10/03/16 22:15 Total Protein 7.0 g/dl (6.4-8.2) 10/03/16 22:15 Albumin 3.0 g/dl (3.4-5.0) L 10/03/16 22:15 IMAGING: Head CT Reviewed by Imaging computer salesperson retail: No acute brain parenchymal abnormality. No hemorrhage, mass or acute territorial infarct. Laceration and swelling right parietal scalp. No skull fracture. Clear visualized paranasal sinuses. Visualized mastoid air cells clear. ASSESSMENT AND PLAN: New onset seizure possible secondary to alcohol abuse -Ativan PRN -Neuro consult in AM -Aspiration precautions Alcohol dependance -Librium Protocol -3/4 CAGE Score -CIWA Protocol -Thymine Follate -IVF Rash -r/o Pellagra -Bacitracin to inguinal area BID -Dermatology consult Microcytic Anemia -Anemia Panel -FOBT Leukocytosis possibly reactive but will r/o Aspiration PNA -Get CXR -Clindamycin 600 mg TID Documentation prepared by Kenzie Powers, acting as lpn medical assistant for Katy Farris MD
[2016-10-04] MEDS: SODIUM CHLORIDE 1,000 ML IV SCH ×3 (04:50→23:03)
[2016-10-04] MEDS ORDERED: LORAZEPAM CARPU-JECT 2 MG/ML DISP.SYRIN IVPUSH PRN (06:18)
[2016-10-04 08:17] LABS: BASOPHIL 0.9 % (0-2.0); EOSINOPHIL 2.3 % (0-4.5); MCH 25.4 pg (25.7-33.7); MCHC 30.9 g/dl (32.0-36.0); MEAN CELL VOLUME 82.2 fl (80-96); MEAN PLT VOLUME 6.4 fl (7.5-11.1); NEUTROPHILS 63.7 % (42.8-82.8); PLATELET COUNT 431 K/MM3 (134-434); RDW 26.1 % (11.6-15.6)
[2016-10-04] MEDS ORDERED: chlordiazePOXIDE HCL 25 MG CAPSULE PO PRN (08:21)
[2016-10-04 08:43] LABS: ALBUMIN 2.3 g/dl (3.4-5.0); ANION GAP 8 (8-16); BILIRUBIN,TOTAL 0.3 mg/dL (0.2-1.0); CALCIUM 7.2 mg/dL (8.5-10.1); CO2 22 mmol/L (21-32); COCKROFT - GAULT 141.6865; CREATININE 0.5 mg/dL (0.55-1.02); GLUCOSE,RANDOM 86 mg/dL (74-106); SGOT/AST 87 U/L (15-37); SGPT/ALT 53 U/L (12-78); TOT PROT 5.4 g/dl (6.4-8.2)
[2016-10-04 08:48] LABS: ALK PHOS 104 U/L (45-117)
--- NOTE | 2016-10-04 09:12 | PN ---
S Progress Note (SOAP) Subjective: Pt. was sent from detox to ED because of seizure witness by staff with head trauma & laceration. Objective: 10/04/16 09:11 Vital Signs - 8 hr 10/04/16 10/04/16 06:05 07:42 Temperature 99.2 F 99 F Pulse Rate [ 103 H 101 H Left Radial] Respiratory 20 20 Rate Blood Pressure 110/79 116/85 [Left Arm] O2 Sat by Pulse 98 Oximetry (%) Laboratory Results - last 24 hr 10/03/16 10/03/16 10/03/16 22:15 22:15 22:15 WBC 10.2 H RBC 3.40 L Hgb 8.7 L Hct 27.1 L MCV 79.8 L MCHC 31.9 L RDW 26.6 H Plt Count 510 H MPV 6.3 L Neutrophils % 75.0 Lymphocytes % 17.0 Monocytes % 4.0 Eosinophils % 1.0 Basophils % 0.0 Band Neutrophils 3.0 INR 0.94 Sodium Potassium Chloride Carbon Dioxide Anion Gap BUN Creatinine Creat Clearance w eGFR POC Glucometer Random Glucose Serum Osmolality Lactic Acid Calcium Phosphorus Magnesium Total Bilirubin AST ALT Alkaline Phosphatase Creatine Kinase 108 Troponin I < 0.02 Total Protein Albumin Lipase Serum , Qual Urine Color Urine Appearance Urine pH Ur Specific [place] Urine Protein Urine Glucose (UA) Urine Ketones Urine Blood Urine Nitrite Urine Bilirubin Urine Urobilinogen Ur Leukocyte Esterase Urine RBC Urine WBC Ur Epithelial Cells Urine Bacteria 10/03/16 10/03/16 10/03/16 22:15 22:15 22:15 WBC RBC Hgb Hct MCV MCHC RDW Plt Count MPV Neutrophils % Lymphocytes % Monocytes % Eosinophils % Basophils % Band Neutrophils INR Sodium 135 L Potassium 4.1 Chloride 102 Carbon Dioxide 22 Anion Gap 11 BUN 3 L Creatinine 0.5 L Creat Clearance w eGFR > 60 POC Glucometer Random Glucose 104 Serum Osmolality 279 Lactic Acid 1.437 Calcium 8.6 Phosphorus 2.8 Magnesium 2.3 Total Bilirubin 0.3 AST 110 H ALT 64 Alkaline Phosphatase 137 H Creatine Kinase Troponin I Total Protein 7.0 Albumin 3.0 L Lipase 129 Serum , Qual Urine Color Urine Appearance Urine pH Ur Specific [place] Urine Protein Urine Glucose (UA) Urine Ketones Urine Blood Urine Nitrite Urine Bilirubin Urine Urobilinogen Ur Leukocyte Esterase Urine RBC Urine WBC Ur Epithelial Cells Urine Bacteria 10/03/16 10/03/16 10/03/16 22:15 22:17 23:47 WBC RBC Hgb Hct MCV MCHC RDW Plt Count MPV Neutrophils % Lymphocytes % Monocytes % Eosinophils % Basophils % Band Neutrophils INR Sodium Potassium Chloride Carbon Dioxide Anion Gap BUN Creatinine Creat Clearance w eGFR POC Glucometer [phone] Random Glucose Serum Osmolality Lactic Acid Calcium Phosphorus Magnesium Total Bilirubin AST ALT Alkaline Phosphatase Creatine Kinase Troponin I Total Protein Albumin Lipase Serum , Qual Negative Urine Color Straw Urine Appearance Clear Urine pH 6.0 Ur Specific [place] 1.002 Urine Protein Negative Urine Glucose (UA) Negative Urine Ketones Negative Urine Blood 2+ H Urine Nitrite Negative Urine Bilirubin Negative Urine Urobilinogen Negative Ur Leukocyte Esterase 1+ H Urine RBC <1 Urine WBC <1 Ur Epithelial Cells Rare Urine Bacteria Rare 10/04/16 08:00 WBC 7.0 D RBC 3.03 L Hgb 7.7 L D Hct 24.9 L MCV 82.2 MCHC 30.9 L RDW 26.1 H Plt Count 431 MPV 6.4 L Neutrophils % 63.7 Lymphocytes % 25.8 D Monocytes % 7.3 D Eosinophils % 2.3 D Basophils % 0.9 D Band Neutrophils INR Sodium Potassium Chloride Carbon Dioxide Anion Gap BUN Creatinine Creat Clearance w eGFR POC Glucometer Random Glucose Serum Osmolality Lactic Acid Calcium Phosphorus Magnesium Total Bilirubin AST ALT Alkaline Phosphatase Creatine Kinase Troponin I Total Protein Albumin Lipase Serum , Qual Urine Color Urine Appearance Urine pH Ur Specific [place] Urine Protein Urine Glucose (UA) Urine Ketones Urine Blood Urine Nitrite Urine Bilirubin Urine Urobilinogen Ur Leukocyte Esterase Urine RBC Urine WBC Ur Epithelial Cells Urine Bacteria labs noted Assessment: 10/04/16 09:12 Withdrawal seizure Plan: Resume detox protocol
[2016-10-04 09:26] LABS: ANISOCYTOSIS 3+; HYPOCHROMIA 3+; MICROCYTOSIS 1+; POLYCHROMASIA 2+
[2016-10-04 09:29] VITALS: BMI 24.7
[2016-10-04] MEDS ORDERED: THIAMINE HCL 100 MG TABLET (FP) PO SCH (10:00)
[2016-10-04] MEDS: FOLIC ACID 1 MG TABLET (FP) PO SCH (10:19)
[2016-10-04] MEDS: BACITRACIN 30 GM TUBE TOPICAL OINTMENT TP SCH ×2 (10:19→23:07)
[2016-10-04] MEDS: chlordiazePOXIDE HCL 25 MG CAPSULE PO SCH ×3 (10:20→23:02)
[2016-10-04] MEDS ORDERED: chlordiazePOXIDE HCL 25 MG CAPSULE PO SCH (11:00)
--- NOTE | 2016-10-04 12:49 | PN ---
Teaching Attending Note Name of Resident: Mariia Justice ATTENDING PHYSICIAN STATEMENT I saw and evaluated the patient. I reviewed the resident's note and discussed the case with the resident. I agree with the resident's findings and plan as documented. SUBJECTIVE: no fever or chills no abd pain or CP. she felt dizzy ( spinning ) before she fell last night . and does not remember what happened next. per records , she fell , had what looked like tonic clonic seizure , and was briefly unresponsive after that . OBJECTIVE: NAD , Awake , alert oriented x 3. normal speech CV: RRR, no MRG, tachy Lungs: CTAB Abd : soft, NT, ND , nL BS Neuro : symmetric face, no facial droop, EOMI, round equal pupils , reactive to light . Nl facial sensation. strength 5/5 in upper and lower ext , proximally and distally. sensation to light touch NL.. reflexes 2+ knee jerk , and biceps b /l . NL speech . Skin: dry peeling skin on b/l shoulder with no erythema or discharge . dry papular rash on L sided abd , with no peeling. LLE with dry, peeling, exfoliative rash on lateral leg and thigh with hyperpigmented discoloration on anterior and posterior thigh. with scratch vincent lateral thigh , and wet peeling skin medial upper thigh. wet peeling skin on R medial upper thigh , with dry peeling skin on lower medial thigh . feet are normal . no lesions among toes , or on palms or soles, or tongue or MM, except for cracked skin on L mouth angle . minimal vesicles are seen on lower anterior guy on L side ASSESSMENT AND PLAN: 41 y/o lady with h/o alcoholism , who presented shortly after she was admitted to [facility] detox with a fall, LOC and seizure like activity 1- Seizure like activity: I was not able to reach anyone at [facility] who witnessed event. not clear if patient had received any dose of Benzos before she had the event. in DDx, withdrawal seizure is possible, but also convulsive vasovagal syncope is possible. Also , not sure if she had orthostatic hypotension . - Will detox patient and monitor fro nay seizure like activity - no point from obtaining prolactin level now - neuro cs. - I don't feel the need fro MRI of brain at this point - check orthostatics and hospital monitor 2- Rash : unclear etiology. unlikely Tony's David's . Unlikely bacterial skin infection . unlikely pemphigus Unlikely Pellagra in DDx: contact dermatitis, fungal skin infection , drug reaction , and Vitamin/ nutritional deficiency - Derm consult . - avoid any topical steroids - apply bacitracin to wet exfoliated areas. - check B1, B2, B3 3- ALcohol withdrawal : detox with librium protocol. monitor for seizure 4- leukocytosis : likely reactive. no evidence of infection . d/c abx started last night . 5- will transfer back to [facility] tomorrow am
--- NOTE | 2016-10-04 13:38 | MSN ---
Progress Note (short form) - Note Progress Note: 41 y/o female with PMH of Alcohol abuse presents to ER from [facility] s/p witnessed seizure. Patient went to [facility] yesterday for Alcohol detox; after arriving (time line unkown) pt had a seizure. States that she felt dizzy before she passed out; pt do not remembering events during seizure but recall events before and after episode. EMS reported no tongue biting, bladder or bowel incontinence. Patient was started on librium taper in ER. Patient also complained of loose stools for a couple of days and rash X 1 week. Rash has gotten bigger since it began but is not painful. Today patient is communicating w/o any difficult and denies pain, constipation, dysuria, increased frequency, vomting, nausea, heart beating fast, headaches, hematuria. Last Vital Signs Temp Pulse Resp BP Pulse Ox 99.7 F H 101 H 18 124/77 98 10/04/16 08:59 10/04/16 08:59 10/04/16 08:59 10/04/16 08:59 10/04/16 07:42 Laboratory Results - last 24 hr 10/03/16 10/03/16 10/03/16 22:15 22:15 22:15 WBC 10.2 H RBC 3.40 L Hgb 8.7 L Hct 27.1 L MCV 79.8 L MCHC 31.9 L RDW 26.6 H Plt Count 510 H MPV 6.3 L Neutrophils % 75.0 Lymphocytes % 17.0 Monocytes % 4.0 Eosinophils % 1.0 Basophils % 0.0 Band Neutrophils 3.0 Polychromasia Hypochromic-Microcytic Anisocytosis Microcytosis Macrocytosis INR 0.94 Sodium Potassium Chloride Carbon Dioxide Anion Gap BUN Creatinine Creat Clearance w eGFR POC Glucometer Random Glucose Serum Osmolality Lactic Acid Calcium Phosphorus Magnesium Total Bilirubin AST ALT Alkaline Phosphatase Creatine Kinase 108 Troponin I < 0.02 Total Protein Albumin Lipase Serum , Qual Urine Color Urine Appearance Urine pH Ur Specific [place] Urine Protein Urine Glucose (UA) Urine Ketones Urine Blood Urine Nitrite Urine Bilirubin Urine Urobilinogen Ur Leukocyte Esterase Urine RBC Urine WBC Ur Epithelial Cells Urine Bacteria Alcohol, Quantitative 10/03/16 10/03/16 10/03/16 22:15 22:15 22:15 WBC RBC Hgb Hct MCV MCHC RDW Plt Count MPV Neutrophils % Lymphocytes % Monocytes % Eosinophils % Basophils % Band Neutrophils Polychromasia Hypochromic-Microcytic Anisocytosis Microcytosis Macrocytosis INR Sodium 135 L Potassium 4.1 Chloride 102 Carbon Dioxide 22 Anion Gap 11 BUN 3 L Creatinine 0.5 L Creat Clearance w eGFR > 60 POC Glucometer Random Glucose 104 Serum Osmolality 279 Lactic Acid 1.437 Calcium 8.6 Phosphorus 2.8 Magnesium 2.3 Total Bilirubin 0.3 AST 110 H ALT 64 Alkaline Phosphatase 137 H Creatine Kinase Troponin I Total Protein 7.0 Albumin 3.0 L Lipase 129 Serum , Qual Urine Color Urine Appearance Urine pH Ur Specific [place] Urine Protein Urine Glucose (UA) Urine Ketones Urine Blood Urine Nitrite Urine Bilirubin Urine Urobilinogen Ur Leukocyte Esterase Urine RBC Urine WBC Ur Epithelial Cells Urine Bacteria Alcohol, Quantitative 10/03/16 10/03/16 10/03/16 22:15 22:17 23:47 WBC RBC Hgb Hct MCV MCHC RDW Plt Count MPV Neutrophils % Lymphocytes % Monocytes % Eosinophils % Basophils % Band Neutrophils Polychromasia Hypochromic-Microcytic Anisocytosis Microcytosis Macrocytosis INR Sodium Potassium Chloride Carbon Dioxide Anion Gap BUN Creatinine Creat Clearance w eGFR POC Glucometer [phone] Random Glucose Serum Osmolality Lactic Acid Calcium Phosphorus Magnesium Total Bilirubin AST ALT Alkaline Phosphatase Creatine Kinase Troponin I Total Protein Albumin Lipase Serum , Qual Negative Urine Color Straw Urine Appearance Clear Urine pH 6.0 Ur Specific [place] 1.002 Urine Protein Negative Urine Glucose (UA) Negative Urine Ketones Negative Urine Blood 2+ H Urine Nitrite Negative Urine Bilirubin Negative Urine Urobilinogen Negative Ur Leukocyte Esterase 1+ H Urine RBC <1 Urine WBC <1 Ur Epithelial Cells Rare Urine Bacteria Rare Alcohol, Quantitative 10/04/16 10/04/16 10/04/16 08:00 08:00 08:00 WBC 7.0 D RBC 3.03 L Hgb 7.7 L D Hct 24.9 L MCV 82.2 MCHC 30.9 L RDW 26.1 H Plt Count 431 MPV 6.4 L Neutrophils % 63.7 Lymphocytes % 25.8 D Monocytes % 7.3 D Eosinophils % 2.3 D Basophils % 0.9 D Band Neutrophils Polychromasia 2+ Hypochromic-Microcytic 3+ Anisocytosis 3+ Microcytosis 1+ Macrocytosis 2+ INR Sodium 143 Potassium 4.1 Chloride 113 H D Carbon Dioxide 22 Anion Gap 8 BUN 2 L* D Creatinine 0.5 L Creat Clearance w eGFR > 60 POC Glucometer Random Glucose 86 Serum Osmolality Lactic Acid Calcium 7.2 L Phosphorus Magnesium Total Bilirubin 0.3 AST 87 H D ALT 53 Alkaline Phosphatase 104 D Creatine Kinase Troponin I Total Protein 5.4 L D Albumin 2.3 L D Lipase Serum , Qual Urine Color Urine Appearance Urine pH Ur Specific [place] Urine Protein Urine Glucose (UA) Urine Ketones Urine Blood Urine Nitrite Urine Bilirubin Urine Urobilinogen Ur Leukocyte Esterase Urine RBC Urine WBC Ur Epithelial Cells Urine Bacteria Alcohol, Quantitative < 5.0 Current Medications Generic Name Dose Route Start Last Admin Trade Name Freq PRN Reason Stop Dose Admin Bacitracin 1 applic 10/04/16 10:00 10/04/16 10:19 Bacitracin - TP 1 applic BID CINTHIA Administration Chlordiazepoxide HCl 25 mg 10/04/16 09:09 Librium - PO 10/07/16 09:08 Q4H PRN WITHDRAWAL(CONT SUBST) Chlordiazepoxide HCl 50 mg 10/04/16 11:00 10/04/16 10:20 Librium - PO 10/05/16 05:01 50 mg [id number] CINTHIA Administration Chlordiazepoxide HCl 25 mg 10/05/16 11:00 Librium - PO 10/06/16 05:01 [id number] CINTHIA Chlordiazepoxide HCl 15 mg 10/06/16 11:00 Librium - PO 10/07/16 05:01 [id number] CINTHIA Folic Acid 1 mg 10/04/16 10:00 10/04/16 10:19 Folic Acid - PO 1 mg DAILY CINTHIA Administration Sodium Chloride 1,000 mls @ 100 mls/hr 10/04/16 04:30 10/04/16 10:20 Normal Saline - IV 100 mls/hr ASDIR CINTHIA Administration Thiamine HCl 100 mg 10/04/16 10:00 10/04/16 10:19 Vitamin B1 - PO 100 mg DAILY CINTHIA Administration Chest X-ray: No acute pathology Head CT: No acute bleed/hemorrhage,no edema or mass effect OBJECTIVE: General: NAD , Awake , alert oriented x 3. normal speech Head: traumatic laceration; 5 cm on right occiput - galindo are intact; skin is appropriated; no cellulitis; no drainage CV: tachycardic, normal S1, S2; no murmurs, rubs, or gallop Lungs: clear breath sounds B/L Abd : soft, nontender, normoactive bowel sounds Neuro : cranial nerves 11-X11 grossly intact; symmetric face; no facial droop; tongue is midline; proprioception and balance not assessed; strength- B/L Upper and Lower extremity 5/5; B/L DTRs - 2+; sensation intact B/L Skin:Rash - B/L posterior shoulder with distribution anterior shoulder L>R: rash scaly and peeling; B/L LE -L>R: extending from inguinal area circumferentially. Rash on LE has areas of excoriation and bruising Extremity: No LE edema ASSESSMENT AND PLAN: 41 y/o female with h/o alcoholism , presented shortly after she was admitted to [facility] detox with a fall, LOC and seizure like activity 1- Seizure like activity: - in DDx, withdrawal seizure is possible, also convulsive vasovagal syncope is possible. - Will detox patient and monitor for any seizure like activity - neuro cs. 2- Rash : unclear etiology. -in DDx: contact dermatitis, fungal skin infection , drug reaction , and Vitamin /nutritional deficiency - Derm consult . - avoid any topical steroids - apply bacitracin to wet exfoliated areas. - check B1, B2, B3 3- ALcohol withdrawal : detox with librium protocol. monitor for seizure 4- leukocytosis : likely reactive. no evidence of infection . d/c abx started last night .
[2016-10-04] MEDS ORDERED: CLINDAMYCIN HCL 150 MG CAPSULE (FP) PO SCH (14:00)
[2016-10-04] MEDS ORDERED: PIPERACILLIN/TAZOB 3.375 GM 50 ML IVPB ONE (16:03)
--- NOTE | 2016-10-04 16:16 | PN ---
Physical Exam: SUBJECTIVE: Patient seen and examined Patient resting in bed NAD. No acute events. Temp 99.2, tachycardic 132, hemodynamically stable. no further seizure activity. No complaints. states she would like to return rehab. Denies pain, anxiety, lethargy, palpitations, chest pain, sob, n/v, diarrhea, dysuria. OBJECTIVE: Vital Signs Period Temp Pulse Resp BP Sys/Mcknight Pulse Ox Last 24 Hr 98.7 F-99.7 F 101-109 18-20 110-135/77-91 97-98 GENERAL: The patient is awake, alert, and fully oriented, in no acute distress. HEAD: Normal with no signs of trauma. EYES: PERRL, extraocular movements intact, sclera anicteric, conjunctiva clear. No ptosis. ENT: moist mucous membranes. NECK: supple. LUNGS: Breath sounds equal, clear to auscultation bilaterally HEART: Regular rate and rhythm, S1, S2 without murmur ABDOMEN: Soft, nontender, nondistended, normoactive bowel sounds EXTREMITIES: 2+ pulses, warm, well-perfused, no edema. tremors in hands NEUROLOGICAL: Cranial nerves II through XII intact. strength 5/5 b/l, 2+ reflexes b/l. Normal speech, gait not observed. PSYCH: Normal mood, normal affect. SKIN: Warm, dry, normal turgor, diffuse pink exfoliative rash on face, trunk, arms and legs. abrasions in groid where clothes rub against skin. Laboratory Results - last 24 hr 10/04/16 10/04/16 10/04/16 08:00 08:00 08:00 WBC 7.0 D RBC 3.03 L Hgb 7.7 L D Hct 24.9 L MCV 82.2 MCHC 30.9 L RDW 26.1 H Plt Count 431 MPV 6.4 L Neutrophils % 63.7 Lymphocytes % 25.8 D Monocytes % 7.3 D Eosinophils % 2.3 D Basophils % 0.9 D Polychromasia 2+ Hypochromic-Microcytic 3+ Anisocytosis 3+ Microcytosis 1+ Macrocytosis 2+ Sodium 143 Potassium 4.1 Chloride 113 H D Carbon Dioxide 22 Anion Gap 8 BUN 2 L* D Creatinine 0.5 L Creat Clearance w eGFR > 60 Random Glucose 86 Calcium 7.2 L Total Bilirubin 0.3 AST 87 H D ALT 53 Alkaline Phosphatase 104 D Total Protein 5.4 L D Albumin 2.3 L D Vitamin B12 Alcohol, Quantitative < 5.0 10/04/16 13:32 WBC RBC Hgb Hct MCV MCHC RDW Plt Count MPV Neutrophils % Lymphocytes % Monocytes % Eosinophils % Basophils % Polychromasia Hypochromic-Microcytic Anisocytosis Microcytosis Macrocytosis Sodium Potassium Chloride Carbon Dioxide Anion Gap BUN Creatinine Creat Clearance w eGFR Random Glucose Calcium Total Bilirubin AST ALT Alkaline Phosphatase Total Protein Albumin Vitamin B12 441 Alcohol, Quantitative Active Medications Generic Name Dose Route Start Last Admin Trade Name Freq PRN Reason Stop Dose Admin Bacitracin 1 applic 10/04/16 10:00 10/04/16 10:19 Bacitracin - TP 1 applic BID CINTHIA Administration Chlordiazepoxide HCl 25 mg 10/04/16 09:09 Librium - PO 10/07/16 09:08 Q4H PRN WITHDRAWAL(CONT SUBST) Chlordiazepoxide HCl 50 mg 10/04/16 11:00 10/04/16 10:20 Librium - PO 10/05/16 05:01 50 mg [id number] CINTHIA Administration Chlordiazepoxide HCl 25 mg 10/05/16 11:00 Librium - PO 10/06/16 05:01 [id number] CINTHIA Chlordiazepoxide HCl 15 mg 10/06/16 11:00 Librium - PO 10/07/16 05:01 [id number] CINTHIA Folic Acid 1 mg 10/04/16 10:00 10/04/16 10:19 Folic Acid - PO 1 mg DAILY CINTHIA Administration Sodium Chloride 1,000 mls @ 100 mls/hr 10/04/16 04:30 10/04/16 10:20 Normal Saline - IV 100 mls/hr ASDIR CINTHIA Administration Piperacillin Sod/Tazobactam 50 mls @ 100 mls/hr 10/04/16 16:03 Sod 3.375 gm/ Dextrose IVPB 10/04/16 16:32 ONCE ONE Protocol Thiamine HCl 100 mg 10/04/16 10:00 10/04/16 10:19 Vitamin B1 - PO 100 mg DAILY CINTHIA Administration ASSESSMENT/PLAN: This is a 41 yr old F with ETOH abuse x 4 yrs, last drink last 1 w ago, who pas being admitted at [facility] when she was witnessed to have general tonic convulsions lasting 1min followed by 30secs of unresponsiveness. Ho HX of withdrawal sz, no hallucinations. 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 Exfoliative rash (epidermis involved only) is rarely life threatening and suscpect will resolve when bacteremia is treated. New onset seizure -due to sepsis vs EtOH withdrawal -neuro consult -CT head unremarkable ETOH withdrawal -Librium protocol -Detox consult -possible cause of SZ DTs -thiamin, folate -IVF -check vitamin levels Alcohol dependance -Librium Protocol -3/ CAGE Score -CIWA Protocol -Thymine Follate -IVF Microcytic Anemia -FOBT -monitor h/h Problem List - Problems (1) Alcohol withdrawal Code(s): F10.239 - ALCOHOL DEPENDENCE WITH WITHDRAWAL, UNSPECIFIED Qualifiers : Complication of substance-induced condition: uncomplicated Qualified Code(s): F10.230 - Alcohol dependence with withdrawal, uncomplicated (2) Dehydration Code(s): E86.0 - DEHYDRATION (3) Seizure Code(s): R56.9 - UNSPECIFIED CONVULSIONS (4) Exfoliative syndrome Code(s): H25.89 - OTHER AGE-RELATED CATARACT (5) Gram-negative bacteremia Code(s): R78.81 - BACTEREMIA (6) Gram-positive bacteremia Code(s): A49.9 - BACTERIAL INFECTION, UNSPECIFIED Visit type - Emergency Visit Emergency Visit: Yes ED Registration Date: 10/04/16 Care time: The patient presented to the Emergency Department on the above date and was hospitalized for further evaluation of their emergent condition. - New Patient This patient is new to me today: Yes Date on this admission: 10/04/16 - Critical Care Critical Care patient: No - Discharge Referral Referred to [facility] Med P.C.: No
--- NOTE | 2016-10-04 17:29 | PN ---
Progress Note (short form) - Note Progress Note: ID consult asked to see for positive blood cultures and rash 41 year old female came to Detox yesterday- beer drinker reports rash on her legs and thighs and buttocks for one week- now improving with bacitracin +diarrhea had a seizure yesterday and hit her head- sent to ED with head laceration denies IVDU refuses HIV testing no tampons not sexually active feels well and wants to leave! POLYMICROBIAL bacteremia- of unknown etiology well appearing repeat blood cultures esr/ crp ct scan abd/pelvis vanco/zosyn rash- ?strep derm consult would be useful etoh use-detox with libruim send stool workup if diarrhea persists d/w hospitalist service
[2016-10-04] MEDS: PIPERACILLIN/TAZOB 3.375 GM/50 ML PRE-DOCKED IVPB SCH (17:38)
[2016-10-04] MEDS: VANCOMYCIN 1 GRAM (PRE-DOCKED) 1,000 MG/250 ML BAG IVPB SCH (18:39)
--- NOTE | 2016-10-04 18:42 | CONS ---
DATE OF CONSULTATION: DATE OF DICTATION: 10/04/2016 INFECTIOUS DISEASE CONSULTATION HISTORY OF PRESENT ILLNESS: A 41-year-old woman from [place]. She has a history of alcohol use. She drinks a lot of beer. She went yesterday to detox and after arriving at detox where she reported to them she had had a rash basically from her waist on down for the last 1 week and intermittent diarrhea. She had a seizure, fell back, hit her head, and was sent to the emergency room. After arriving in the emergency room she was admitted for further observation and she had some blood cultures drawn. She was continued on her detox regimen. She had a head CT that showed no acute changes. She had galindo to her laceration and a banana bag. She is currently awake and alert. I am asked to see her for positive blood cultures. She notes that she has had this rash for 1 week. She was given bacitracin. The rash is improving. It is not itchy. She never had it before and it is unclear, as she does not associate it with anything else. She is not sexually active. She does not use tampons. Her period was a month ago. PAST MEDICAL HISTORY: She was hospitalized for for her daughter 12 years ago but otherwise she states all her admissions have been for alcohol related. She has never had a seizure before. FAMILY HISTORY: Her father was an alcoholic. ALLERGIES: She had no known drug allergies. MEDICATION: She at home takes no medications. SOCIAL HISTORY: She tells me she lives alone. She used to work in the [employer]. She smokes half a pack per day. She drinks 15 to 16 beers a day for the last 4 years. There is no intravenous drug use. She is not sexually active, has not had sex she states for a year. REVIEW OF SYSTEMS: She denies anything. She has no fevers or chills. She denies headache. She denies difficulty swallowing. She has no abdominal pain. She has no vaginal discharge. She has no chest pain or cough. She reports her rash is improving. PHYSICAL EXAMINATION: Vital signs: Her T-max is 99.7, current temperature is 98.7, pulse 109, blood pressure 135/91, respiratory rate 18, she is saturating 97% on room air. HEENT: Normocephalic. Eyes are anicteric. She has no conjunctival hemorrhages. She has no thrush. Her dentition is good. She has no pharyngitis. Neck: Supple. Lungs: Clear to auscultation. Heart: Regular rate and rhythm. I do not hear a murmur. Abdomen: Soft, nontender. Extremities: Without edema. Skin: Notable for a maculopapular rash on the outside of both her legs. Her skin is very dry and scaly. On the inside of her thighs she has more of these honey crusted lesions that are also very, very dry. She has some scattered dry rash on her left lower abdomen as well as her right shoulder. LABORATORY: Notable for white count on admission of 10.2, today 7, hemoglobin is 7.7, platelets 431. INR 0.94. BUN and creatinine are 2 and 0.5. AST of 87, albumin 2.3. Urinalysis is 1+ leukocytes with no white cells, and her alcohol level was less than 5. Blood cultures are growing gram negative bacilli as well as gram positive cocci in chains. This is in 2 sets of blood cultures drawn in the emergency room. Chest x-ray is negative for infiltrates. Head CT is unremarkable. IMPRESSION: In summary, this is a 41-year-old woman with a history of heavy alcohol use admitted status post seizure with polymicrobial bacteremia of unknown etiology with very interesting is that she looks quite well and does not appear toxic. Would repeat blood cultures, took a sedimentation rate, a CRP, CT scan abdomen and pelvis, as we have no known cause for her bacteremia, and treat her with vancomycin and Zosyn until cultures are back. The rash, some elements look like they could be Streptococcus with honeycombing, it appears to be improving, not consistent with toxic shock. Would observe at this time. Dermatology consult would be useful if possible. Given her alcohol use, she is receiving detox with Librium. I would send a stool workup if her diarrhea persists, as well she is refusing HIV testing, which I asked her about. Discussed the case at length with the hospitalist service. Will make further recommendations based on her clinical course. NASH GO M.D. [id number]
[2016-10-04] MEDS ORDERED: THIAMINE HCL 200 MG/2 ML VIAL IVPB SCH (18:45)
--- NOTE | 2016-10-04 18:51 | CONSULT ---
Consult - text type - Consultation Consultation Note: NEUROLOGY CONSULTATION is greatly appreciated: This 41 yo RH woman with h/o alcoholism was admitted to detox on Friday because she "promised her " and was "getting too emotional. Rashes and skin lesions noted on buttocks and legs. Yesterday developed dizziness described as "spinning" and fell on the back of her head suffering a laceration requiring 5 galindo to close. Found to be septic. Now on multiple IV antibiotics. CT of head (reviewed): reveals moderate diffuse atrophy including the anterior cerebellar vermis Now, Patient denies headache, nausea, dizziness or prior h/o seizures. OLIVIA: Stapled occipital laceration. No Hazel's signs. Full neck ROM. Face puffy ?Cushingoid? NEURO: Awake, alert Ox 3 Speech anxious but fluent CN II-XII: normal without nystagmus Motor: No drift or tremor. Normal strength. Brisk reflexes symmetrically. Toes downgoing Coord: No FTN Dystaxia Sensory normal. Romberg neg Gait: Slightly wide-based and shuffling. IMP: Non-focal neurological exam. Syncope vs seizure. Syncope due to sepsis and hypotension more likely. Mild alcoholic ataxia associated with anterior Vermian atrophy. SUGGEST: Continue detox protocal. Give parenteral thiamine Check orthostatic BP's. Check TSH. B12 is normal. Thank you very much, Brady Ramirez MD
[2016-10-04] MEDS: THIAMINE HCL 200 MG/2 ML VIAL IVPB SCH (23:10)
[2016-10-05] MEDS: chlordiazePOXIDE HCL 25 MG CAPSULE PO PRN ×3 (00:29→21:00)
[2016-10-05] MEDS: PIPERACILLIN/TAZOB 3.375 GM/50 ML PRE-DOCKED IVPB SCH ×3 (01:12→17:06)
[2016-10-05] MEDS: THIAMINE HCL 200 MG/2 ML VIAL IVPB SCH ×3 (02:28→17:06)
[2016-10-05] MEDS: VANCOMYCIN 1 GRAM (PRE-DOCKED) 1,000 MG/250 ML BAG IVPB SCH ×2 (06:00→17:06)
[2016-10-05] MEDS: chlordiazePOXIDE HCL 25 MG CAPSULE PO SCH ×3 (06:00→16:05)
[2016-10-05] MEDS: SODIUM CHLORIDE 1,000 ML IV SCH (06:00)
[2016-10-05 08:07] LABS: SERUM IRON 17 ug/dL (27-159); TOTAL IRON BINDING CAPACITY 323 ug/dL (250-450); UIBC 306 ug/dL (131-425)
[2016-10-05] MEDS: FOLIC ACID 1 MG TABLET (FP) PO SCH (09:29)
[2016-10-05 09:32] LABS: MCH 26.1 pg (25.7-33.7); MCHC 31.4 g/dl (32.0-36.0); MEAN CELL VOLUME 83.3 fl (80-96); MEAN PLT VOLUME 6.3 fl (7.5-11.1); PLATELET COUNT 363 K/MM3 (134-434); RDW 27.8 % (11.6-15.6); WHITE BLOOD COUNT 7.1 K/mm3 (4.0-10.0)
[2016-10-05 09:59] LABS: ALBUMIN 2.5 g/dl (3.4-5.0); ANION GAP 11 (8-16); CO2 20 mmol/L (21-32); GLUCOSE,RANDOM 141 mg/dL (74-106); MAGNESIUM 2.2 mg/dL (1.8-2.4)
[2016-10-05 10:04] LABS: ALK PHOS 110 U/L (45-117); BILIRUBIN,TOTAL 0.4 mg/dL (0.2-1.0); CREATININE 0.6 mg/dL (0.55-1.02); PHOSPHOROUS 4.3 mg/dL (2.5-4.9); SGOT/AST 59 U/L (15-37); SGPT/ALT 58 U/L (12-78); TOT PROT 6.1 g/dl (6.4-8.2)
[2016-10-05] MEDS: BACITRACIN 30 GM TUBE TOPICAL OINTMENT TP SCH ×2 (10:10→21:01)
--- NOTE | 2016-10-05 11:06 | PN ---
Teaching Attending Note Name of Resident: Mariia Justice ATTENDING PHYSICIAN STATEMENT I saw and evaluated the patient. I reviewed the resident's note and discussed the case with the resident. I agree with the resident's findings and plan as documented. SUBJECTIVE: no pain, feels better , no complaints OBJECTIVE: NAD, Awake , alert oriented x 3. normal speech CV: RRR, no MRG Lungs: CTAB Abd: soft, NT, ND , nL BS Skin: dry peeling skin on b/l shoulder with no erythema or discharge . dry papular rash on L sided abd , with no peeling. LLE with dry, peeling, exfoliative rash on lateral leg and thigh with hyperpigmented discoloration on anterior and posterior thigh. with scratch vincent lateral thigh , and wet peeling skin medial upper thigh. wet peeling skin on R medial upper thigh , with dry peeling skin on lower medial thigh . feet are normal . no lesions among toes , or on palms or soles, or tongue or MM, except for cracked skin on L mouth angle . vesicles are seen on lower anterior guy now dry . scally skin o n buttocks . on L side ASSESSMENT AND PLAN: 41 y/o lady with h/o alcoholism , who presented shortly after she was admitted to [facility] detox with a fall, LOC and seizure like activity 1- Seizure like activity: vasovagal convulsive syncope, vs orthostatic hypotension , vs withdrawal; seizure - orthostatic VS pending - cont thiamine - monitor 2- Rash: unclear etiology. in DDx: bacterial infection , contact dermatitis, fungal skin infection , drug reaction , and Vitamin/nutritional deficiency - was not able to obtain derm consult . - apply bacitracin to wet exfoliated areas. - B2, B3 pending 3- bacteremia : G- ( likely Klebsiella) , and G+ ( strep ) . source could be abdomen , Vs skin infection vs contamination of skin lesions from urine and stool - refused Ct abd/pelvis - cont zosyn . - follow repeat blood cx - echo pending . 4- Mobitz one 1st degree AV block on tele : not on any AV tom blockers. - concern fro endocarditis. echo pending - will check lyme titers as cause of AV block 5- ALcohol withdrawal : cont detox with librium protocol. monitor for seizure cont thiamine HLOC
--- NOTE | 2016-10-05 12:47 | PN ---
Physical Exam: SUBJECTIVE: Patient seen and examined Patient resting in bed NAD. Afebrile, tachycardic 102, hemodynamically stable. Mobitz type 1 block on telemetry. no further seizure activity. Denies f/c, lethargy, palpitations, chest pain, abd pain, sob, n/v, diarrhea, dysuria. Patient very anxious and asking to leave AMA because she promised the father of her chid to whom she is not but to whom she refers as , that she will complete rehab. Refuses CT abdomen but cant provide a reason. Explained extensively that she has a serious blood infection and anemia that requires IV antibiotic treatment and CT abd; patient verbalizes understanding but [facility] to [facility]. Explained to patient that she is getting detox here and can [facility] once her infection is taken care of. Also explained that a rehab/detox facility will not accept her if she is bacteremic. Spoke on the phone with her "" Donell . he states that they are share custody of a daughter. he is in contact with her mother. He [facility] this week and urged her to get treatment. He states that over the past 3 mo she has been in and out of hospitals, leaving AM, and that she has been previously diagnosed with bacteremia. After patient spoke with Donell, she agreed to stay in hospital but still refusing CT abd w/o a reason. She appears to feel guilty about her drinking, crying when told she cant to to rehab just yet and appears to be desperate to rebuild her relationship with Donell and daughter. OBJECTIVE: Vital Signs Period Temp Pulse Resp BP Sys/Mcknight Pulse Ox Last 24 Hr 98.1 F-98.7 F 90-109 16-18 102-135/72-91 97-98 GENERAL: The patient is awake, alert, and fully oriented, in no acute distress. HEAD: Normal with no signs of trauma. EYES: PERRL, extraocular movements intact, sclera anicteric, conjunctiva clear. No ptosis. ENT: moist mucous membranes. NECK: supple. LUNGS: Breath sounds equal, clear to auscultation bilaterally HEART: Regular rate and rhythm, S1, S2 without murmur ABDOMEN: Soft, nontender, nondistended, normoactive bowel sounds EXTREMITIES: 2+ pulses, warm, well-perfused, no edema. tremors in hands NEUROLOGICAL: Cranial nerves II through XII intact. strength 5/5 b/l, 2+ reflexes b/l. Normal speech, gait not observed. PSYCH: Normal mood, normal affect. SKIN: Warm, dry, normal turgor, diffuse pink exfoliative rash on face, trunk, arms and legs. abrasions in groin where clothes rub against skin. small vesicles at ankles slightly improved Laboratory Results - last 24 hr 10/04/16 10/04/16 10/05/16 08:00 13:32 08:25 WBC 7.1 RBC 3.25 L Hgb 8.5 L D Hct 27.1 L MCV 83.3 MCHC 31.4 L RDW 27.8 H Plt Count 363 MPV 6.3 L ESR Sodium Potassium Chloride Carbon Dioxide Anion Gap BUN Creatinine Creat Clearance w eGFR Random Glucose Calcium Phosphorus Magnesium Iron 17 L TIBC 323 Iron Saturation 5 L Total Bilirubin AST ALT Alkaline Phosphatase C-Reactive Protein Total Protein Albumin Vitamin B12 441 10/05/16 10/05/16 10/05/16 08:25 08:25 08:25 WBC RBC Hgb Hct MCV MCHC RDW Plt Count MPV ESR 30 H Sodium 140 Potassium 3.7 Chloride 109 H Carbon Dioxide 20 L Anion Gap 11 BUN 4 L D Creatinine 0.6 Creat Clearance w eGFR > 60 Random Glucose 141 H D Calcium 8.0 L Phosphorus 4.3 D Magnesium 2.2 Iron TIBC Iron Saturation Total Bilirubin 0.4 D AST 59 H D ALT 58 Alkaline Phosphatase 110 C-Reactive Protein 1.0 H Total Protein 6.1 L Albumin 2.5 L Vitamin B12 Active Medications Generic Name Dose Route Start Last Admin Trade Name Freq PRN Reason Stop Dose Admin Bacitracin 1 applic 10/04/16 10:00 10/05/16 10:10 Bacitracin - TP 1 applic BID CINTHIA Administration Chlordiazepoxide HCl 25 mg 10/04/16 09:09 10/05/16 12:09 Librium - PO 10/07/16 09:08 25 mg Q4H PRN Administration WITHDRAWAL(CONT SUBST) Chlordiazepoxide HCl 25 mg 10/05/16 11:00 10/05/16 11:24 Librium - PO 10/06/16 05:01 25 mg [id number] CINTHIA Administration Chlordiazepoxide HCl 15 mg 10/06/16 11:00 Librium - PO 10/07/16 05:01 [id number] CINTHIA Chlordiazepoxide HCl 10 mg 10/07/16 11:00 Librium - PO 10/08/16 05:01 [id number] CINTHIA Folic Acid 1 mg 10/04/16 10:00 10/05/16 09:29 Folic Acid - PO 1 mg DAILY CINTHIA Administration Sodium Chloride 1,000 mls @ 100 mls/hr 10/04/16 04:30 10/05/16 06:00 Normal Saline - IV Not Given ASDIR CINTHIA Piperacillin Sod/Tazobactam Sod 3.375 gm 10/04/16 18:00 10/05/16 09:29 Zosyn 3.375gm Ivpb (Pre-Docked) IVPB 3.375 gm Q8H-IV CINTHIA Administration Protocol Thiamine HCl 200 mg 10/04/16 22:35 10/05/16 09:29 Vitamin B1 Injection - IVPB 10/07/16 10:01 200 mg Q8H-IV CINTHIA Administration Vancomycin HCl 1,000 mg 10/04/16 18:00 10/05/16 06:00 Vancomycin (Pre-Docked) IVPB 1,000 mg BID@0600,1800 CINTHIA Administration Protocol ASSESSMENT/PLAN: This is a 41 yr old F with ETOH abuse x 4 yrs, last drink last 1 w ago, who pas being admitted at [facility] when she was witnessed to have general tonic convulsions lasting 1min followed by 30secs of unresponsiveness. Ho HX of withdrawal sz, no hallucinations. Sepsis due to Gram negative and gram positive bacteremia in chains -bacteremia is chronic -remains asymptomatic -blood lactose fermenting negative bacilli, GDS -afebrile, wbc 7 -zosyn, vanco day 2 -suspect intra abdominal source given anemia. Other possible sources include urine and skin -refuses CT abd but doesnt provide reason -TTE r/o endocarditis (cardiomegaly on cxr, Mobitz type 1 block on tele) -ID on case -IVF Diffuse exfoliative rash -face, arms, legs, trunk; slight improvement -likley due to bacteremia: possibly scalded skin syndrome; other possible causes include drug rxn vs vitamin deficiency -bacitracin ointment New onset seizure -due to sepsis vs EtOH withdrawal vs orthostatic -neuro consult: less likley SZ but rather syncope due to hypotension, sepsis. -CT head unremarkable -orthostatic vitals negative ETOH withdrawal -Librium protocol -Detox consult -thiamin, folate -IVF -check vitamin levels Alcohol dependance -Librium Protocol -3/4 CAGE Score -CIWA Protocol -Thymine Follate -IVF Microcytic Anemia -FOBT; suspect GI ulcer -monitor h/h FEN NS@100 lytes stable regular diet Dispo: med [facility] Problem List - Problems (1) Alcohol withdrawal Code(s): F10.239 - ALCOHOL DEPENDENCE WITH WITHDRAWAL, UNSPECIFIED Qualifiers : Complication of substance-induced condition: uncomplicated Qualified Code(s): F10.230 - Alcohol dependence with withdrawal, uncomplicated (2) Dehydration Code(s): E86.0 - DEHYDRATION (3) Seizure Code(s): R56.9 - UNSPECIFIED CONVULSIONS (4) Exfoliative syndrome Code(s): H25.89 - OTHER AGE-RELATED CATARACT (5) Gram-negative bacteremia Code(s): R78.81 - BACTEREMIA (6) Gram-positive bacteremia Code(s): A49.9 - BACTERIAL INFECTION, UNSPECIFIED Visit type - Emergency Visit Emergency Visit: Yes ED Registration Date: 10/04/16 Care time: The patient presented to the Emergency Department on the above date and was hospitalized for further evaluation of their emergent condition. - New Patient This patient is new to me today: No - Critical Care Critical Care patient: No - Discharge Referral Referred to [facility] Med P.C.: No
--- NOTE | 2016-10-05 16:32 | PN ---
Progress Note (short form) - Note Progress Note: awake and alert no complaints Vital Signs Period Temp Pulse Resp BP Sys/Mcknight Pulse Ox Last 24 Hr 98.1 F-98.5 F 90-103 16-18 102-145/72-97 97-98 cor-rrr lungs clear abd soft,nt ext trace edema skin- diffuse erythema of the legs, scaling improved CBC, BMP 10/05/16 08:25 10/05/16 08:25 Microbiology 10/04/16 02:47 Blood - Peripheral Venous Blood Culture - Preliminary Lactose Fermenting Neg Bacilli Group D Strep Or Entero Coccus 10/04/16 02:47 Blood - Peripheral Venous Blood Culture - Preliminary Lactose Fermenting Neg Bacilli Streptococcus Species Laboratory Tests 10/05/16 10/05/16 08:25 08:25 ESR 30 H C-Reactive Protein 1.0 H a/p polymicrobial bacteremia- refused ct scan ?skin, ?gi continue vanco/zosyn f/u cultures repeat cultures pending check vancomycin trough before fourth dose etoh use rash d/w hospitalist
[2016-10-06] MEDS: chlordiazePOXIDE HCL 25 MG CAPSULE PO SCH ×2 (00:23→05:20)
[2016-10-06] MEDS: THIAMINE HCL 200 MG/2 ML VIAL IVPB SCH ×3 (02:03→17:11)
[2016-10-06] MEDS: PIPERACILLIN/TAZOB 3.375 GM/50 ML PRE-DOCKED IVPB SCH ×3 (02:03→17:10)
[2016-10-06] MEDS ORDERED: ACETAMINOPHEN 325 MG TABLET (FP) PO ONE (03:32)
[2016-10-06] MEDS: SODIUM CHLORIDE 1,000 ML IV SCH ×2 (05:19→20:37)
[2016-10-06] MEDS: VANCOMYCIN 1 GRAM (PRE-DOCKED) 1,000 MG/250 ML BAG IVPB SCH (05:20)
[2016-10-06 08:02] LABS: MCH 26.3 pg (25.7-33.7); MCHC 31.7 g/dl (32.0-36.0); MEAN CELL VOLUME 82.9 fl (80-96); MEAN PLT VOLUME 6.5 fl (7.5-11.1); PLATELET COUNT 307 K/MM3 (134-434); RDW 28.1 % (11.6-15.6); WHITE BLOOD COUNT 7.8 K/mm3 (4.0-10.0)
[2016-10-06 08:23] LABS: CALCIUM 7.8 mg/dL (8.5-10.1); CREATININE 0.6 mg/dL (0.55-1.02); MAGNESIUM 1.9 mg/dL (1.8-2.4); PHOSPHOROUS 4.5 mg/dL (2.5-4.9)
[2016-10-06 08:34] LABS: FREE T4 0.8 ng/dl (0.76-1.46); THYROID STIMULATING HORMONE 0.79 uIU/ml (0.358-3.74)
--- NOTE | 2016-10-06 08:58 | PN ---
Progress Note (short form) - Note Progress Note: awake and alert no complaints found smoking in her room last night- may be why she had a temp of 100.2 Vital Signs Period Temp Pulse Resp BP Sys/Mcknight Pulse Ox Last 24 Hr 98 F-100.2 F 90-103 18-18 121-145/70-99 97-98 cor-rrr lungs clear abd soft,nt ext no edema rash resolving CBC, BMP 10/06/16 06:10 10/06/16 06:10 Microbiology 10/04/16 18:58 Blood - Peripheral Venous Blood Culture - Preliminary NO GROWTH OBTAINED AFTER 24 HOURS, INCUBATION TO CONTINUE FOR 4 DAYS. 10/04/16 18:58 Blood - Peripheral Venous Blood Culture - Preliminary NO GROWTH OBTAINED AFTER 24 HOURS, INCUBATION TO CONTINUE FOR 4 DAYS. 10/04/16 02:47 Blood - Peripheral Venous Blood Culture - Preliminary Lactose Fermenting Neg Bacilli Group D Strep Or Entero Coccus 10/04/16 02:47 Blood - Peripheral Venous Blood Culture - Preliminary Lactose Fermenting Neg Bacilli Streptococcus Species Laboratory Tests 10/05/16 10/05/16 08:25 08:25 ESR 30 H C-Reactive Protein 1.0 H a/p polymicrobial bacteremia- refused ct scan abd/pelvis ?skin, ?gi continue vanco/zosyn f/u cultures repeat cultures so far negative check vancomycin trough before fourth dose etoh use rash resolving
[2016-10-06] MEDS: FOLIC ACID 1 MG TABLET (FP) PO SCH (09:49)
[2016-10-06] MEDS: BACITRACIN 30 GM TUBE TOPICAL OINTMENT TP SCH ×2 (09:51→22:12)
[2016-10-06] MEDS: chlordiazePOXIDE 5 MG CAPSULE PO SCH ×3 (10:50→22:17)
--- NOTE | 2016-10-06 14:12 | PN ---
Progress Note (short form) - Note Progress Note: Subjective: no pain , feels much better . has no fever or chills. Objective: Vital Signs: Last Vital Signs Temp Pulse Resp BP Pulse Ox 98.2 F 88 18 133/72 97 10/06/16 10:00 10/06/16 10:00 10/06/16 10:00 10/06/16 10:00 10/06/16 10:00 Laboratory Results - last 24 hr 10/06/16 10/06/16 10/06/16 06:10 06:10 10:00 WBC 7.8 RBC 3.03 L Hgb 8.0 L Hct 25.1 L MCV 82.9 MCHC 31.7 L RDW 28.1 H Plt Count 307 MPV 6.5 L Sodium 141 Potassium 3.5 Chloride 110 H Carbon Dioxide 22 Anion Gap 9 BUN 4 L Creatinine 0.6 Random Glucose 100 D Calcium 7.8 L Phosphorus 4.5 Magnesium 1.9 TSH 0.79 Free T4 0.80 Vancomycin Trough 5.059 Physical Exam: NAD, Awake , alert oriented x 3. normal speech CV: RRR, no MRG Lungs: CTAB Skin: dry peeling skin on shoulders, L sided abd, and LE is better . areas on upper inner thighs are also better , and drier helper . ASSESSMENT AND PLAN: 41 y/o lady with h/o alcoholism , who presented shortly after she was admitted to [facility] with a fall, LOC and seizure like activity 1- Seizure like activity: vasovagal convulsive syncope, vs orthostatic hypotension , vs withdrawal seizure - cont thiamine - monitor 2-Exfoliative Rash: unclear etiology. in DDx: bacterial infection , contact dermatitis, fungal skin infection , drug reaction , and Vitamin/nutritional deficiency improved - apply bacitracin to wet exfoliated areas. - B2, B3 pending 3- Bacteremia : Klebsiella and strep source could be abdomen , Vs skin infection vs contamination of skin lesions from urine and stool - refused Ct abd/pelvis agin today. will be agreeable to CT tomorrow - cont zosyn, and vanco - vanco level this am , was not a true vanco trough, but still low. dose increased . will repeat trough - follow repeat blood cx ( still neg even before abx ) - echo pending. 4- Mobitz one 1st degree AV block on tele : not on any AV tom blockers. - concern for endocarditis. echo pending - will check lyme titers as cause of AV block 5- ALcohol withdrawal : cont detox with librium protocol. monitor for seizure cont thiamine dispo : HLOC Had a conversation with her and her family. She agrees to stay and comply with treatment Visit type - Emergency Visit Emergency Visit: Yes ED Registration Date: 10/04/16 Care time: The patient presented to the Emergency Department on the above date and was hospitalized for further evaluation of their emergent condition. - New Patient This patient is new to me today: No - Critical Care Critical Care patient: No
[2016-10-06 16:08] LABS: HEMATOCRIT 24.9 % (34.0-46.6)
[2016-10-06] MEDS: NICOTINE 21 MG/24 HOURS TOPICAL PATCH TD SCH (16:39)
[2016-10-06] MEDS: VANCOMYCIN 1,250 MG in DEXTROSE 5%-WATER - 250 ML IVPB SCH (18:33)
[2016-10-07] MEDS: THIAMINE HCL 200 MG/2 ML VIAL IVPB SCH ×2 (02:07→09:54)
[2016-10-07] MEDS: PIPERACILLIN/TAZOB 3.375 GM/50 ML PRE-DOCKED IVPB SCH ×2 (02:07→09:54)
[2016-10-07] MEDS ORDERED: PT OWN MED DRAWER 7, Y5N ONE ×2 (05:24→21:26)
[2016-10-07] MEDS: VANCOMYCIN 1,250 MG in DEXTROSE 5%-WATER - 250 ML IVPB SCH (05:53)
[2016-10-07] MEDS: chlordiazePOXIDE 5 MG CAPSULE PO SCH ×4 (05:53→22:48)
[2016-10-07] MEDS: SODIUM CHLORIDE 1,000 ML IV SCH ×2 (05:56→09:55)
[2016-10-07] MEDS: BACITRACIN 30 GM TUBE TOPICAL OINTMENT TP SCH ×2 (09:54→21:24)
[2016-10-07] MEDS: NICOTINE 21 MG/24 HOURS TOPICAL PATCH TD SCH (09:54)
[2016-10-07] MEDS: FOLIC ACID 1 MG TABLET (FP) PO SCH (09:54)
--- NOTE | 2016-10-07 13:49 | PN ---
Teaching Attending Note Name of Resident: Mariia Justice ATTENDING PHYSICIAN STATEMENT I saw and evaluated the patient. I reviewed the resident's note and discussed the case with the resident. I agree with the resident's findings and plan as documented. SUBJECTIVE: no fever or chills, no abd pain OBJECTIVE: NAD, Awake , alert oriented x 3. CV: RRR, no MRG Lungs: CTAB Skin: dry peeling skin on shoulders, torso and ext almost resolved ASSESSMENT AND PLAN: 41 y/o lady with h/o alcoholism , who presented shortly after she was admitted to [facility] detox with a fall, LOC and seizure like activity 1- Seizure like activity: vasovagal convulsive syncope, vs orthostatic hypotension , vs withdrawal seizure - monitor 2-Exfoliative Rash: unclear etiology. almost resolved vitamin levels pending 3- Bacteremia : Klebsiella and enterococcus source could be abdomen , Vs skin infection vs contamination of skin lesions from urine and stool -repeat blood cx neg - d/w Dr. Feliciano, to start unasyn and gent ( start genta after CT scan , which is hopefully today ) - will convince her to get CT scan. if not will start genta - repeat blood cx neg - follow echo - will obtain records frm OSH for previous blood cx if available 4- Mobitz one 1st degree AV block on tele : tele today with only one missed beat - r/o Endocarditis - lyme titers pending 5- ALcohol withdrawal : almost done with librium detox will need rehab Dispo : OC
--- NOTE | 2016-10-07 14:00 | PN ---
Progress Note (short form) - Note Progress Note: awake and alert no complaints no fevers Vital Signs Period Temp Pulse Resp BP Sys/Mcknight Pulse Ox Last 24 Hr 98.0 F-98.9 F 89-95 18-18 130-152/79-90 96 cor-rrr llungs clear abd soft,nt ext no edema rash resolving CBC, BMP 10/06/16 06:10 10/06/16 06:10 Microbiology 10/07/16 11:00 Stool Clostridium difficile Antigen (BRAYDON) - Final 10/07/16 11:00 Stool Clostridium difficile Toxin Assay - Final 10/04/16 18:58 Blood - Peripheral Venous Blood Culture - Preliminary NO GROWTH OBTAINED AFTER 48 HOURS, INCUBATION TO CONTINUE FOR 3 DAYS. 10/04/16 18:58 Blood - Peripheral Venous Blood Culture - Preliminary NO GROWTH OBTAINED AFTER 48 HOURS, INCUBATION TO CONTINUE FOR 3 DAYS. 10/04/16 02:47 Blood - Peripheral Venous Blood Culture - Final Klebsiella Pneumoniae Enterococcus Faecium 10/04/16 02:47 Blood - Peripheral Venous Blood Culture - Final Klebsiella Pneumoniae Enterococcus Faecium Laboratory Tests 10/05/16 10/05/16 08:25 08:25 ESR 30 H C-Reactive Protein 1.0 H a/p polymicrobial bacteremia- refused ct scan abd/pelvis ?skin, ?gi not even sure if these cultures are real! repeat blood cultures drawn before antibiotics on the same day are negative can switch to unasyn add gent if no plans for ct [id number] continues to refuse) for echo today d/w hospitalist service boyfriend raised possibility of prior bacteremia at another hospital- to see if we can get more information/records rash resolving etoh abuse
--- NOTE | 2016-10-07 14:39 | MSN ---
Progress Note (short form) - Note Progress Note: 41 y/o female with PMH of Alcohol abuse presents to ER from [facility] s/p witnessed seizure. Patient went to [facility] yesterday for Alcohol detox; after arriving (time line unkown) pt had a seizure. Patient also had a head laceration posterior right temporal lobe on presentation. Today patient is communicating w/o any difficult and denies pain, dizziness, weakness, nausea, vomiting, difficulties talking or walking. Last Vital Signs Temp Pulse Resp BP Pulse Ox 98.9 F 93 H 18 138/90 97 10/07/16 10:00 10/07/16 10:00 10/07/16 10:00 10/07/16 10:00 10/07/16 09:00 Laboratory Results - last 24 hr 10/04/16 10/06/16 10/06/16 13:32 14:45 17:00 Hct 24.9 L Vitamin B2 212.0 Folate 1348 Folate Hemolysate 335.6 Urine HCG, Qual Stool Occult Blood Vancomycin Trough 2.823 L* Lyme Screen IgG & IgM <0.91 10/07/16 10/07/16 08:30 11:00 Hct Vitamin B2 Folate Folate Hemolysate Urine HCG, Qual Negative Stool Occult Blood Negative Vancomycin Trough Lyme Screen IgG & IgM CBC, BMP 10/06/16 06:10 10/06/16 06:10 Iron - 17 [id number] Iron Saturation - 5 Microbiology 10/07/16 11:00 Stool Clostridium difficile Antigen (BRAYDON) - Final 10/07/16 11:00 Stool Clostridium difficile Toxin Assay - Final 10/04/16 18:58 Blood - Peripheral Venous Blood Culture - Preliminary NO GROWTH OBTAINED AFTER 48 HOURS, INCUBATION TO CONTINUE FOR 3 DAYS. 10/04/16 18:58 Blood - Peripheral Venous Blood Culture - Preliminary NO GROWTH OBTAINED AFTER 48 HOURS, INCUBATION TO CONTINUE FOR 3 DAYS. 10/04/16 02:47 Blood - Peripheral Venous Blood Culture - Final Klebsiella Pneumoniae Enterococcus Faecium 10/04/16 02:47 Blood - Peripheral Venous Blood Culture - Final Klebsiella Pneumoniae Enterococcus Faecium Current Medications Generic Name Dose Route Start Last Admin Trade Name Freq PRN Reason Stop Dose Admin Bacitracin 1 applic 10/04/16 10:00 10/07/16 09:54 Bacitracin - TP 1 applic BID CINTHIA Administration Chlordiazepoxide HCl 10 mg 10/07/16 11:00 10/07/16 11:45 Librium - PO 10/08/16 05:01 10 mg [id number] CINTHIA Administration Folic Acid 1 mg 10/04/16 10:00 10/07/16 09:54 Folic Acid - PO 1 mg DAILY CINTHIA Administration Ampicillin Sodium/Sulbactam 100 mls @ 200 mls/hr 10/07/16 15:00 Sodium 3 gm/ Sodium Chloride IVPB Q6H-IV CINTHIA Nicotine 21 mg 10/06/16 15:00 10/07/16 09:54 Nicoderm Patch - TD 21 mg DAILY CINTHIA Administration OBJECTIVE: General: patient is talkative, NAD, oriented to place, person and time Head: laceration healing with galindo (7) still in place, no cellulitis, erythema, TTP, swelling, drainage, abnormal smell CV: normal S1, S2; no murmurs, rubs, or gallop Lungs: clear breath sounds B/L Abd : soft, nontender, normoactive bowel sounds Neuro : cranial nerves II-XII grossly intact; symmetric face; proprioception and balance not assessed; strength- B/L Upper and Lower extremity 5/5; B/L DTRs - 2+; sensation intact B/L Skin:Rash - B/L posterior shoulder rash much better than previous exam-no scaling or discoloration, still appears dry. Leg - Left minimal erythema Lateral LE, no scaling, excoriations, TTP, or weeping, vesicles are not visible anymore. Right medial leg - no eythema, excoriations, weeping or vesicles. Extremity: No LE edema ASSESSMENT AND PLAN: 41 y/o female with h/o alcoholism , presented after being admitted to [facility] detox with a fall, LOC and seizure like activity and laceration to right linear posterior occipital lobe. 1. Seizure like activity: possible vasovagal or withdrawal -continue thiamine 2. Exfoliative Rash - unclear etiology- possible related to bacteremia -Bacitracin - BID 3. Bacteremia: Klebsiella Pneumoniae and Enterococcus Faecium -could be abdomen, skin infection or possible from skin lesions from urine or stool -pt denied CT of Abdomen-advised of necessity of study -Day 4 of Vanco; ID will switch to Unacysn today; will consider adding gentamicin to therapy if pt not agreeable to CT scan -Echo ordered (pt has 1st degree AV block on telemetry)- r/o infective endocarditis -monitor vital signs 4. Alcohol withdrawal - continue detox with librium protocol (day 4) - monitor seizure signs and symptoms -Continue Thiamine -B2 levels WNL; B3 and B6 - pending 5. Microcytic Anemia -likely iron deficiency due to iron studies -FOBT - negative result -start on Iron tablets -consult hematology 6. Head Laceration-linear -galindo still in place - total 7 -continue to monitor healing
[2016-10-07] MEDS ORDERED: AMPICILLIN NA/SULBACTAM NA 100 ML IVPB SCH (15:00)
--- NOTE | 2016-10-07 15:08 | PN ---
Physical Exam: SUBJECTIVE: Patient seen and examined Patient resting in bed NAD. No acute events. Afebrile, hemodynamically stable. No complaints. Still refusing CT abd. Anxious but better. Denies pain, lethargy , palpitations, chest pain, sob, n/v, diarrhea, dysuria. Per [facility], patient was there may 26 2016 and was C diff + antigen and pcr, not toxin, she was there again in jun 2016 but no micro was done. She has alos visited other hospitals, unknown which. OBJECTIVE: Vital Signs Period Temp Pulse Resp BP Sys/Mcknight Pulse Ox Last 24 Hr 98.0 F-98.9 F 89-94 18-18 130-152/79-90 96-97 GENERAL: The patient is awake, alert, and fully oriented, in no acute distress. HEAD: Normal with no signs of trauma. EYES: PERRL, extraocular movements intact, sclera anicteric, conjunctiva clear. No ptosis. ENT: moist mucous membranes. NECK: supple. LUNGS: Breath sounds equal, clear to auscultation bilaterally HEART: Regular rate and rhythm, S1, S2 without murmur ABDOMEN: Soft, nontender, nondistended, normoactive bowel sounds EXTREMITIES: 2+ pulses, warm, well-perfused, no edema. tremors in hands NEUROLOGICAL: Cranial nerves II through XII intact. strength 5/5 b/l, 2+ reflexes b/l. Normal speech, gait not observed. PSYCH: Normal mood, normal affect. SKIN: Warm, dry, normal turgor, diffuse pink exfoliative rash on face, trunk, arms and legs. abrasions in groin where clothes rub against skin. small vesicles at ankles crusted Laboratory Results - last 24 hr 10/04/16 10/06/16 10/06/16 13:32 14:45 17:00 Hct 24.9 L Vitamin B2 212.0 Folate 1348 Folate Hemolysate 335.6 Urine HCG, Qual Stool Occult Blood Vancomycin Trough 2.823 L* Lyme Screen IgG & IgM <0.91 10/07/16 10/07/16 08:30 11:00 Hct Vitamin B2 Folate Folate Hemolysate Urine HCG, Qual Negative Stool Occult Blood Negative Vancomycin Trough Lyme Screen IgG & IgM Active Medications Generic Name Dose Route Start Last Admin Trade Name Freq PRN Reason Stop Dose Admin Bacitracin 1 applic 10/04/16 10:00 10/07/16 09:54 Bacitracin - TP 1 applic BID CINTHIA Administration Chlordiazepoxide HCl 10 mg 10/07/16 11:00 10/07/16 11:45 Librium - PO 10/08/16 05:01 10 mg B1V-HEP CINTHIA Administration Folic Acid 1 mg 10/04/16 10:00 10/07/16 09:54 Folic Acid - PO 1 mg DAILY CINTHIA Administration Ampicillin Sodium/Sulbactam 100 mls @ 200 mls/hr 10/07/16 15:00 Sodium 3 gm/ Sodium Chloride IVPB Q6H-IV CINTHIA Nicotine 21 mg 10/06/16 15:00 10/07/16 09:54 Nicoderm Patch - TD 21 mg DAILY CINTHIA Administration Thiamine HCl 100 mg 10/08/16 10:00 Vitamin B1 - PO DAILY CINTHIA ASSESSMENT/PLAN: This is a 41 yr old F with ETOH abuse x 4 yrs, last drink last 1 w ago, who pas being admitted at [facility] when she was witnessed to have general tonic convulsions lasting 1min followed by 30secs of unresponsiveness. Ho HX of withdrawal sz, no hallucinations. Sepsis due to Gram negative and gram positive bacteremia -enterococcus, kleibsella -repeat blood drawn before abx is negative -bacteremia is chronic based on story -remains asymptomatic -zosyn, vanco day 4, id will switch to unasyn, gentamycin -suspect intra abdominal source given anemia. Other possible sources include urine and skin -refuses CT abd but doesnt provide reason -TTE r/o endocarditis (cardiomegaly on cxr, Mobitz type 1 block on tele) -history of c diff; stool now c diff negative, cultures p/d Diffuse exfoliative rash -face, arms, legs, trunk; improved -likley due to bacteremia: possibly scalded skin syndrome; other possible causes include drug rxn vs vitamin deficiency -bacitracin ointment New onset seizure -due to sepsis vs EtOH withdrawal vs orthostatic -neuro consult: less likley SZ but rather syncope due to hypotension, sepsis. -CT head unremarkable -orthostatic vitals negative ETOH withdrawal -Librium protocol -Detox consult -thiamin, folate Microcytic Anemia -FOBT negative -possible Fe deficiency vs marrow suppression due to EtOH -monitor h/h FEN no IVF lytes stable regular diet Dispo: [facility] Problem List - Problems (1) Alcohol withdrawal Code(s): F10.239 - ALCOHOL DEPENDENCE WITH WITHDRAWAL, UNSPECIFIED Qualifiers : Complication of substance-induced condition: uncomplicated Qualified Code(s): F10.230 - Alcohol dependence with withdrawal, uncomplicated (2) Dehydration Code(s): E86.0 - DEHYDRATION (3) Seizure Code(s): R56.9 - UNSPECIFIED CONVULSIONS (4) Exfoliative syndrome Code(s): H25.89 - OTHER AGE-RELATED CATARACT (5) Gram-negative bacteremia Code(s): R78.81 - BACTEREMIA (6) Gram-positive bacteremia Code(s): A49.9 - BACTERIAL INFECTION, UNSPECIFIED Visit type - Emergency Visit Emergency Visit: Yes ED Registration Date: 10/04/16 Care time: The patient presented to the Emergency Department on the above date and was hospitalized for further evaluation of their emergent condition. - New Patient This patient is new to me today: No - Critical Care Critical Care patient: No - Discharge Referral Referred to [facility] Med [facility] No
[2016-10-07] MEDS: AMPICILLIN NA/SULBACTAM NA 3 GM in SODIUM CHLORIDE 100 ML IVPB SCH ×2 (16:36→21:36)
[2016-10-07] MEDS: FERROUS SO4 325 MG TABLET (FP) PO SCH (16:36)
[2016-10-07] MEDS: LACTOBACILLUS ACIDOPHILUS 1 EACH TAB (FP) PO SCH (17:28)
--- NOTE | 2016-10-07 17:41 | CONSULT ---
Consult Consult Specialty:: Dermatology - History Source History Provided By: Patient - Past Medical History RESIDENT IN DIAGNOSTIC RADIOLOGY: Yes: Seizure ...LMP: 09/02/16 - Alcohol/Substance Use Hx Alcohol Use: Yes - Smoking History Smoking history: Current every day smoker Have you smoked in the past 12 months: Yes Aproximately how many cigarettes per day: 20 Home Medications - Allergies Allergies/Adverse Reactions: Allergies Allergy/AdvReac Type Severity Reaction Status Date / Time No Known Allergies Allergy Verified 10/03/16 21:34 - Home Medications Home Medications: Ambulatory Orders NK [No Known Home Medication] 10/03/16 Family Disease History - Family Disease History Family Disease History: Other: Father (no contact) Physical Exam Vital Signs: Vital Signs Temperature 98.9 F 10/07/16 10:00 Pulse Rate 93 H 10/07/16 10:00 Respiratory Rate 18 10/07/16 10:00 Blood Pressure 138/90 10/07/16 10:00 O2 Sat by Pulse Oximetry (%) 97 10/07/16 09:00 Constitutional: Yes: Well Nourished, No Distress, Calm Eyes: Yes: WNL Integumentary: Yes: Erythema Labs: CBC, BMP 10/06/16 06:10 10/06/16 06:10 Assessment/Plan Patient reports having a rash a few days ago. currently the only areas involved are erythema and numular eczematous eruption on left hip and lateral leg consistent with mild atopic dermatitis. patient has very dry skin. will treat with lidex cream for 1 week then apply moisturizer to skin QD. no sign of skin infection present or vesicular eruption at this time. will follow up as needed.
[2016-10-07] MEDS: DEXTROSE 5% IVPB SCH (19:35)
[2016-10-07] MEDS: GENTAMICIN IVPB SCH (19:35)
[2016-10-07] MEDS: WATER IVPB SCH (19:35)
[2016-10-07] MEDS ORDERED: LORazepam 0.5 MG TABLET PO ONE (20:09)
[2016-10-07] MEDS: FLUOCINONIDE 0.05% CREAM (15 GM TUBE) TP SCH (22:48)
[2016-10-08] MEDS: AMPICILLIN NA/SULBACTAM NA 3 GM in SODIUM CHLORIDE 100 ML IVPB SCH ×3 (03:19→15:26)
[2016-10-08] MEDS: DEXTROSE 5% IVPB SCH (05:50)
[2016-10-08] MEDS: chlordiazePOXIDE 5 MG CAPSULE PO SCH (05:50)
[2016-10-08] MEDS: GENTAMICIN IVPB SCH (05:50)
[2016-10-08] MEDS: WATER IVPB SCH (05:50)
[2016-10-08 07:39] LABS: MCHC 31.4 g/dl (32.0-36.0); MEAN CELL VOLUME 82.9 fl (80-96); MEAN PLT VOLUME 6.6 fl (7.5-11.1); PLATELET COUNT 330 K/MM3 (134-434); RDW 27.7 % (11.6-15.6); WHITE BLOOD COUNT 6.1 K/mm3 (4.0-10.0)
[2016-10-08] MEDS ORDERED: SODIUM CHLORIDE 1,000 ML IV SCH (07:45)
[2016-10-08] MEDS ORDERED: LORAZEPAM CARPU-JECT 2 MG/ML DISP.SYRIN IVPUSH ONE (08:45)
--- NOTE | 2016-10-08 08:46 | PN ---
Progress Note (short form) - Note Progress Note: awake and alert no complaints no fevers no diarrhea agreeable to ct scan today Vital Signs Period Temp Pulse Resp BP Sys/Mcknight Pulse Ox Last 24 Hr 98.0 F-99.9 F 74-94 16-18 132-159/71-107 95-97 cor-rrr lungs clear abd soft,nt ext no edema rash resolving CBC, BMP 10/08/16 06:30 10/06/16 06:10 Laboratory Tests 10/05/16 10/05/16 08:25 08:25 ESR 30 H C-Reactive Protein 1.0 H a/p polymicrobial bacteremia-for ct scan abd/pelvis ?skin, ?gi not even sure if these cultures are real! suspect contaminant she never had fever with original blood cultures and repeat blood cultures drawn before antibiotics on the same day are negative can switch to unasyn/gent f/u echo, f/u ct scan day #4 antibiotics boyfriend raised possibility of prior bacteremia at another hospital- to see if we can get more information/records-per resident [facility] was contacted and there was report of cdiff antigen positive, toxin negative, no positive blood cultures rash resolving etoh abuse
[2016-10-08] MEDS ORDERED: PT OWN MED DRAWER 7, Y5N ONE (08:55)
[2016-10-08] MEDS: FERROUS SO4 325 MG TABLET (FP) PO SCH (09:50)
[2016-10-08] MEDS: THIAMINE HCL 100 MG TABLET (FP) PO SCH (09:51)
[2016-10-08] MEDS: NICOTINE 21 MG/24 HOURS TOPICAL PATCH TD SCH (09:51)
[2016-10-08] MEDS: LACTOBACILLUS ACIDOPHILUS 1 EACH TAB (FP) PO SCH (09:51)
[2016-10-08] MEDS: FOLIC ACID 1 MG TABLET (FP) PO SCH (09:51)
[2016-10-08] MEDS: FLUOCINONIDE 0.05% CREAM (15 GM TUBE) TP SCH (09:52)
[2016-10-08] MEDS: BACITRACIN 30 GM TUBE TOPICAL OINTMENT TP SCH (09:52)
--- NOTE | 2016-10-08 13:16 | PN ---
Teaching Attending Note Name of Resident: Mariia Justice ATTENDING PHYSICIAN STATEMENT I saw and evaluated the patient. I reviewed the resident's note and discussed the case with the resident. I agree with the resident's findings and plan as documented. SUBJECTIVE: no fever ro chills, feels much better . OBJECTIVE: NAD, Awake , alert oriented x 3. CV: RRR, no MRG Lungs: CTAB Skin: dry peeling skin on shoulders, torso and ext almost resolved . hyperpigmentation on Lateral L leg and thigh . ASSESSMENT AND PLAN: 41 y/o lady with h/o alcoholism , who presented shortly after she was admitted to [facility] detox with a fall, LOC and seizure like activity 1- Seizure like activity: vasovagal convulsive syncope, vs orthostatic hypotension , vs withdrawal seizure - monitor 2-Exfoliative Rash: possibly nummular eczema . seen by derm vitamin levels pending 3- Bacteremia : Klebsiella and enterococcus source could be abdomen , Vs skin infection vs contamination of skin lesions from urine and stool -repeat blood cx neg ( drawn on same day of initial cx before abx were started ) - Cont unasyn and Genta. - agreed to CT abd/pelvis today , so will hydrate x 12 hr with NS @ 125 cc/hr as she is on genta - echo read pending [facility], [facility] . will try to check a hospital in [place] 4- Mobitz one 1st degree AV block on tele : tele today with no block - r/o Endocarditis - lyme titers do not indicate infection 5- ALcohol withdrawal : today is last day of librium detox . Dispo : [facility]LOC
[2016-10-08] MEDS: LORazepam 0.5 MG TABLET PO PRN ×2 (13:43→21:29)
--- NOTE | 2016-10-08 14:08 | PN ---
Addendum entered and electronically signed by Mariia Justice RES 10/08/16 14: 30: P: NS@125 x 24 hr to avoid nephrotoxicity with gentamycin. Original Note: Physical Exam: SUBJECTIVE: Patient seen and examined Patient resting in bed NAD. No acute events. Afebrile, hemodynamically stable. No complaints. Had CT abd done today. Less anxious. Denies pain, lethargy, palpitations, chest pain, sob, n/v, diarrhea, dysuria. Patient states she has been to [facility] in the past few months OBJECTIVE: Vital Signs Period Temp Pulse Resp BP Sys/Mcknight Pulse Ox Last 24 Hr 98.0 F-99.9 F 74-100 16-18 121-159/71-107 95-98 GENERAL: The patient is awake, alert, and fully oriented, in no acute distress. HEAD: Normal with no signs of trauma. galindo in back wound intact day 5 EYES: PERRL, extraocular movements intact, sclera anicteric, conjunctiva clear. No ptosis. ENT: moist mucous membranes. NECK: supple. LUNGS: Breath sounds equal, clear to auscultation bilaterally HEART: Regular rate and rhythm, S1, S2 without murmur ABDOMEN: Soft, nontender, nondistended, normoactive bowel sounds EXTREMITIES: 2+ pulses, warm, well-perfused, no edema. NEUROLOGICAL: Cranial nerves II through XII intact. strength 5/5 b/l, 2+ reflexes b/l. Normal speech, normal observed. PSYCH: Normal mood, normal affect. SKIN: Warm, dry, normal turgor, rash on face, trunk, arms and legs almost completely gone, no vesicles. Laboratory Results - last 24 hr 10/06/16 10/07/16 10/08/16 14:45 21:45 06:30 WBC 6.1 RBC 3.26 L Hgb 8.5 L Hct 27.0 L MCV 82.9 MCHC 31.4 L RDW 27.7 H Plt Count 330 MPV 6.6 L Ferritin Vancomycin Trough 2.985 L* Lyme Screen IgG & IgM <0.91 10/08/16 07:05 WBC RBC Hgb Hct MCV MCHC RDW Plt Count MPV Ferritin 18.566 Vancomycin Trough Lyme Screen IgG & IgM Active Medications Generic Name Dose Route Start Last Admin Trade Name Freq PRN Reason Stop Dose Admin Bacitracin 1 applic 10/04/16 10:00 10/08/16 09:52 Bacitracin - TP 1 applic BID CINTHIA Administration Ferrous Sulfate 325 mg 10/07/16 16:00 10/08/16 09:50 Feosol - PO 325 mg DAILY CINTHIA Administration Fluocinonide 1 applic 10/07/16 17:45 10/08/16 09:52 Lidex 0.05% Cream - TP 1 applic DAILY CINTHIA Administration Folic Acid 1 mg 10/04/16 10:00 10/08/16 09:51 Folic Acid - PO 1 mg DAILY CINTHIA Administration Ampicillin Sodium/Sulbactam 100 mls @ 200 mls/hr 10/07/16 15:00 10/08/16 09:53 Sodium 3 gm/ Sodium Chloride IVPB 200 mls/hr Q6H-IV CINTHIA Administration Sodium Chloride 1,000 mls @ 125 mls/hr 10/08/16 07:45 10/08/16 09:49 Normal Saline - IV 10/08/16 19:44 125 mls/hr ASDIR CINTHIA Administration Gentamicin Sulfate 60 mg/ 101.5 mls @ 101.5 mls/hr 10/08/16 18:00 Sodium Chloride IVPB Q12H CINTHIA Lactobacillus Acidophilus 1 tab 10/07/16 17:00 10/08/16 09:51 Bacid - PO 1 tab DAILY CINTHIA Administration Lorazepam 0.5 mg 10/08/16 07:03 10/08/16 13:43 Ativan - PO 0.5 mg Q8H PRN Administration ANXIETY Nicotine 21 mg 10/06/16 15:00 10/08/16 09:51 Nicoderm Patch - TD 21 mg DAILY CINTHIA Administration Thiamine HCl 100 mg 10/08/16 10:00 10/08/16 09:51 Vitamin B1 - PO 100 mg DAILY CINTHIA Administration ASSESSMENT/PLAN: This is a 41 yr old F with ETOH abuse x 4 yrs, last drink last 1 w ago, who pas being admitted at [facility] when she was witnessed to have general tonic convulsions lasting 1min followed by 30secs of unresponsiveness. Ho HX of withdrawal sz, no hallucinations. Sepsis due to Gram negative and gram positive bacteremia -enterococcus, kleibsella -repeat blood drawn before abx is negative, initial blood may be contaminant -bacteremia is chronic based on story -remains asymptomatic -unasyn, gentamycin 60 bid day 2 -CT abd unremarkable (cholelithiasis, nephrolithiasis) -TTE unremarkable -history of c diff; stool now c diff negative, cultures p/d Diffuse exfoliative rash -face, arms, legs, trunk; resolving -likley due to bacteremia: possibly scalded skin syndrome; other possible causes include drug rxn vs vitamin deficiency -bacitracin ointment -derm consult appreciated, appears like atropic dermatitis. Mobitz type 1 block -no treatment indicated New onset seizure -due to sepsis vs EtOH withdrawal vs orthostatic -neuro consult: less likley SZ but rather syncope due to hypotension, sepsis. -CT head unremarkable -orthostatic vitals negative ETOH withdrawal -finished Librium detox -wishes to proceed to rehab Microcytic Anemia -FOBT negative -possible Fe deficiency vs marrow suppression due to EtOH -monitor h/h FEN no IVF lytes stable regular diet Dispo: [facility] Problem List - Problems (1) Alcohol withdrawal Code(s): F10.239 - ALCOHOL DEPENDENCE WITH WITHDRAWAL, UNSPECIFIED Qualifiers : Complication of substance-induced condition: uncomplicated Qualified Code(s): F10.230 - Alcohol dependence with withdrawal, uncomplicated (2) Dehydration Code(s): E86.0 - DEHYDRATION (3) Seizure Code(s): R56.9 - UNSPECIFIED CONVULSIONS (4) Exfoliative syndrome Code(s): H25.89 - OTHER AGE-RELATED CATARACT (5) Gram-negative bacteremia Code(s): R78.81 - BACTEREMIA (6) Gram-positive bacteremia Code(s): A49.9 - BACTERIAL INFECTION, UNSPECIFIED Visit type - Emergency Visit Emergency Visit: Yes ED Registration Date: 10/04/16 Care time: The patient presented to the Emergency Department on the above date and was hospitalized for further evaluation of their emergent condition. - New Patient This patient is new to me today: No - Critical Care Critical Care patient: No - Discharge Referral Referred to [facility] No
--- NOTE | 2016-10-08 14:39 | MSN ---
Progress Note (short form) - Note Progress Note: 41 y/o female with PMH of Alcohol abuse presents to ER from [facility] s/p witnessed seizure. No acute events recorded overnight. Pt reported some anxiety this morning because of CT Scan. She denied pain, nausea, abdominal pain, bowel or bladder problems. Last Vital Signs Temp Pulse Resp BP Pulse Ox 98.4 F 100 H 18 121/95 98 10/08/16 10:00 10/08/16 10:00 10/08/16 10:00 10/08/16 10:00 10/08/16 10:00 Laboratory Results - last 24 hr 10/07/16 10/08/16 10/08/16 21:45 06:30 07:05 WBC 6.1 RBC 3.26 L Hgb 8.5 L Hct 27.0 L MCV 82.9 MCHC 31.4 L RDW 27.7 H Plt Count 330 MPV 6.6 L Ferritin 18.566 Vancomycin Trough 2.985 L* Microbiology 10/07/16 11:00 Stool Clostridium difficile Antigen ([facility]RAYDON) - Final 10/07/16 11:00 Stool Clostridium difficile Toxin Assay - Final 10/07/16 11:00 Stool Salmonella/Shigella Culture - Preliminary NO ENTERIC PATHOGENS, 24 HOURS, ON PRIMARY PLATES 10/07/16 11:00 Stool Yersinia Culture - Preliminary NO ENTERIC PATHOGENS, 24 HOURS, ON PRIMARY PLATES 10/07/16 11:00 Stool Vibrio Culture - Final 10/07/16 11:00 Stool Escherichia coli 0157 Culture - Final NO GROWTH OF E COLI 0157 OBTAINED 10/04/16 18:58 Blood - Peripheral Venous Blood Culture - Preliminary NO GROWTH OBTAINED AFTER 72 HOURS, INCUBATION TO CONTINUE FOR 2 DAYS. 10/04/16 18:58 Blood - Peripheral Venous Blood Culture - Preliminary NO GROWTH OBTAINED AFTER 72 HOURS, INCUBATION TO CONTINUE FOR 2 DAYS. 10/07/16 11:00 Stool Gram Stain - Final 10/04/16 02:47 Blood - Peripheral Venous Blood Culture - Final Klebsiella Pneumoniae Enterococcus Faecium 10/04/16 02:47 Blood - Peripheral Venous Blood Culture - Final Klebsiella Pneumoniae Enterococcus Faecium OBJECTIVE: General: NAD, A&O X3 Head: laceration healing well; galindo (7) still in place, no cellulitis, erythema, TTP, swelling, drainage or abnormal smell CV: normal S1, S2; no murmurs, rubs, or gallop Lungs: clear breath sounds B/L Abd : soft, nontender, normoactive bowel sounds Neuro : cranial nerves II-XII grossly intact; strength- B/L Upper and Lower extremity 5/5; B/L DTRs - 2+; sensation intact B/L Skin:Rash - B/L posterior shoulder: normal skin, no flaking visualized; Leg - Left minimal erythema Lateral LE, no scaling, or vesicles are not visible. Right medial leg - no eythema, excoriations, weeping or vesicles. Extremity: No LE edema ASSESSMENT AND PLAN: 41 y/o female with h/o alcoholism , presented to ER s/p fall, LOC and seizure like activity and laceration to right linear posterior occipital lobe shortly after [facility] from [facility]. 1. Seizure like activity: possible vasovagal or withdrawal -continue thiamine 2. Exfoliative Rash - unclear etiology- possible related to bacteremia -Dermatology consult completed -D/C bacitracin-begin Lidex cream 3. Bacteremia: Klebsiella Pneumoniae and Enterococcus Faecium -CT Scan - no acute pathology in abdomen or Pelvis; There is cholelithiasis & B/ L Nephrolithiasis -Echo - No mass or vegetation visualized -Cont. Unacysn -day 2 & gentamicin -day 2 -monitor vital signs 4. Alcohol withdrawal - continue detox with librium protocol (day 5 (last day) - monitor seizure signs and symptoms -Continue Thiamine 5. Microcytic Anemia -likely iron deficiency due to iron studies -FOBT - negative result -Follow up outpatient 6. Head Laceration-linear -galindo still in place - total 7 -continue to monitor healing
[2016-10-08] MEDS ORDERED: GENTAMICIN INJECTION 60 MG in SODIUM CHLORIDE 100 ML IVPB SCH (18:00)
[2016-10-08] MEDS: AMOX TR/POT CLAV 875MG/125MG TABLETS (FP) PO SCH (19:23)
[2016-10-09] MEDS: LORazepam 0.5 MG TABLET PO PRN (05:51)
[2016-10-09] MEDS: AMOX TR/POT CLAV 875MG/125MG TABLETS (FP) PO SCH (08:53)
[2016-10-09] MEDS: FLUOCINONIDE 0.05% CREAM (15 GM TUBE) TP SCH (08:59)
[2016-10-09] MEDS: THIAMINE HCL 100 MG TABLET (FP) PO SCH (09:00)
[2016-10-09] MEDS: FOLIC ACID 1 MG TABLET (FP) PO SCH (09:00)
[2016-10-09] MEDS: FERROUS SO4 325 MG TABLET (FP) PO SCH (09:01)
[2016-10-09] MEDS: NICOTINE 21 MG/24 HOURS TOPICAL PATCH TD SCH (09:01)
[2016-10-09 09:18] LABS: CALCIUM 8.2 mg/dL (8.5-10.1); COCKROFT - GAULT 141.6865; CREATININE 0.5 mg/dL (0.55-1.02)
[2016-10-09 10:59] VITALS: TEMP 98.7
--- NOTE | 2016-10-09 11:21 | PN ---
Teaching Attending Note Name of Resident: Mariia Justice ATTENDING PHYSICIAN STATEMENT I saw and evaluated the patient. I reviewed the resident's note and discussed the case with the resident. I agree with the resident's findings and plan as documented. SUBJECTIVE:currently asymptomatic. requesting to [facility] for inpatient rehab. denies CP, SOB,fever, chills, N/V/C/D OBJECTIVE: Last Vital Signs Temp Pulse Resp BP Pulse Ox 98.7 F 98 H 20 123/82 97 10/09/16 10:00 10/09/16 10:00 10/09/16 10:00 10/09/16 10:00 10/09/16 10:00 General NAD CV S1 S2 RRR no murmur/rub/gallop lungs CTA B/L no wheezing/rales/rhonchi Extremities no tremors ASSESSMENT AND PLAN: 41yo F with PMH continuous ETOH abuse presented to the ER and was admitted for further evaluation of their emergent condition 1. Seizure like ativity- more likely syncope with convulsions. no repeated episodes here. evaluate by neuro. no indication for medications at this time. sustained head laceration s/p galindo last week. will remove today 2. ETOH withdrawal- CIWA 0. completed librium protocol. desires inpatient rehab. will call [facility] for acceptance and bed availability. educated on importance of ETOH abstinence. 3. Klebsiella and enterococcus bactermia- 2 sets of BCx drawn on admission prior to abx being initiated. received Unasyn/Gent. likely BCx is contaminate. ID will treat empirically with augmentin 4. Diffuse exfoliative rash- evaluated by derm. lidex cream for 1 week and mositurizer daily. follow up as outpatient 5. d/c planning today. contact [facility] for bed availability if no beds available. pt will need to call facility daily for when beds become available. explained to pt will go home if no beds available.
--- NOTE | 2016-10-09 13:54 | PN ---
Progress Note (short form) - Note Progress Note: awake and alert no complaints no fevers no diarrhea Vital Signs Period Temp Pulse Resp BP Sys/Mcknight Pulse Ox Last 24 Hr 98.1 F-99.3 F 78-99 18-20 123-152/82-109 97-97 cor-rrr lungs clear abd soft,nt ext no edema rash fading CBC, BMP 10/08/16 06:30 10/09/16 05:[address] abd/pelvis-small consolidation LLL, abd is negative Laboratory Tests 10/05/16 10/05/16 08:25 08:25 ESR 30 H C-Reactive Protein 1.0 H a/p polymicrobial bacteremia- most likely contaminant treat with po augmentin for one week -?LLL pneumonia bacid for one month rash has resolved etoh abuse-for rehab s/p seizure please call back if needed
--- NOTE | 2016-10-09 14:08 | DS ---
Addendum entered and electronically signed by Mariia Justice RES 10/09/16 15: 13: galindo from posterior scapl laceration were removed before d/c, site cleaned, no bleeding, well healed Original Note: Physical Exam: SUBJECTIVE: Patient seen and examined Patient resting in bed NAD. No acute events. Afebrile, hemodynamically stable. No complaints. Had CT abd done today. Less anxious. Denies pain, lethargy, palpitations, chest pain, sob, n/v, diarrhea, dysuria. OBJECTIVE: Vital Signs Period Temp Pulse Resp BP Sys/Mcknight Pulse Ox Last 24 Hr 98.1 F-99.3 F 78-99 18-20 123-152/82-109 97-97 PHYSICAL EXAM GENERAL: The patient is awake, alert, and fully oriented, in no acute distress. HEAD: Normal with no signs of trauma. galindo in back wound intact day 5 EYES: PERRL, extraocular movements intact, sclera anicteric, conjunctiva clear. No ptosis. ENT: moist mucous membranes. NECK: supple. LUNGS: Breath sounds equal, clear to auscultation bilaterally HEART: Regular rate and rhythm, S1, S2 without murmur ABDOMEN: Soft, nontender, nondistended, normoactive bowel sounds EXTREMITIES: 2+ pulses, warm, well-perfused, no edema. NEUROLOGICAL: Cranial nerves II through XII intact. strength 5/5 b/l, 2+ reflexes b/l. Normal speech, normal observed. PSYCH: Normal mood, normal affect. SKIN: Warm, dry, normal turgor, rash on face, trunk, arms and legs almost completely gone, no vesicles. LABS Laboratory Results - last 24 hr 10/04/16 10/09/16 13:32 05:35 Sodium 139 Potassium 4.2 Chloride 108 H Carbon Dioxide 19 L Anion Gap 12 BUN 4 L Creatinine 0.5 L Random Glucose 93 Calcium 8.2 L Vitamin B6 13.3 HOSPITAL COURSE: Date of Admission:10/04/16 This is a 41 yr old F with ETOH abuse x 4 yrs, last drink last 1 w ago, who pas being admitted at [facility] when she was witnessed to have general tonic convulsions lasting 1min followed by 30secs of unresponsiveness. Ho HX of withdrawal sz, no hallucinations. Neuro evaluated that it was less likely SZ but rather syncope due to hypertension. Her blood vultures grew enterococcus, kleibsella x 2 but repeat cultures before abx dose were negative. CRP ans ESR were elevated. It may be a true infection or contaminant. patient didnt have white count was afebrile and didn't appear septic. She was still treated with IV abx. CT abd/pelvist and TTE r/o intraabdominal path or endocarditis. Her tele monitoring was consistent with Mobitz type 1 block. She was also foudn to have microcytic anemia hgb baseline of 8 likely due to Fe deficiency, stool occult negative. She finished detox at [facility] and was xferred to [facility] for rehab on 6 days of PO augmentin Date of Discharge: 10/09/16 Minutes to complete discharge: 60 (na) Discharge Summary Reason For Visit: SEIZURE ETOH WITHDRAWAL DEHYDRATION Current Active Problems Alcohol withdrawal (Acute) Dehydration (Acute) Exfoliative syndrome (Acute) Gram-negative bacteremia (Acute) Gram-positive bacteremia (Acute) Psoriasis (Acute) Seizure (Acute) Condition: Good - Instructions Diet, Activity, Other Instructions: You were in the hospital because you fainted. We found an infection in your blood. You completed a course of intravenous antibiotics and now should finish 6 more days of oral antibiotic Augmentin, twice a day starting tonight. You have a low red cell blood count due to low iron. Please take iron supplements daily. Once you complete 21 days of rehab, please follow up with a primary care doctor in [place]. Return to hospital if symptoms worsen. Referrals: STAFF,NOT ON [Primary Care Provider] - Disposition: TRANSFER ACUTE CARE/OTHER HOSP - Home Medications Comprehensive Discharge Medication List: Ambulatory Orders Amox-Tr/K Cl [Augmentin 875-125mg Tablet -] 1 tab PO BIDWM #11 tablet 10/09/16 Ferrous Sulfate [Feosol] 325 mg PO DAILY #30 tab 10/09/16 Folic Acid - 1 mg PO DAILY #30 tablet 10/09/16 Thiamine HCl [Vitamin B1 -] 100 mg PO DAILY #30 tablet 10/09/16 Problem List - Problems (1) Alcohol withdrawal Code(s): F10.239 - ALCOHOL DEPENDENCE WITH WITHDRAWAL, UNSPECIFIED Qualifiers : Complication of substance-induced condition: uncomplicated Qualified Code(s): F10.230 - Alcohol dependence with withdrawal, uncomplicated (2) Dehydration Code(s): E86.0 - DEHYDRATION (3) Seizure Code(s): R56.9 - UNSPECIFIED CONVULSIONS (4) Exfoliative syndrome Code(s): H25.89 - OTHER AGE-RELATED CATARACT (5) Gram-negative bacteremia Code(s): R78.81 - BACTEREMIA (6) Gram-positive bacteremia Code(s): A49.9 - BACTERIAL INFECTION, UNSPECIFIED This patient is new to me today: No Emergency Visit: Yes ED Registration Date: 10/04/16 Care time: The patient presented to the Emergency Department on the above date and was hospitalized for further evaluation of their emergent condition. Critical Care patient: No - Discharge Referral Referred to [facility] No
[2016-10-09 14:22] VITALS: BP 129/90; PULSE 94
[2016-10-11 09:16] LABS: NICOTINIC ACID <5.0 ng/mL (0.0-5.0)
== END 2016-10-09 15:05 | disposition other institution (70) | DRG 204 ==
LOC: JER 21:24 → JERBED 10-04 03:01 → J4S 10-04 08:42
PROVIDERS: ADMIT Internal Medicine; ATTEND Internal Medicine
DX: R55 Syncope and collapse (principal); R56.9 Unspecified convulsions; E86.0 Dehydration; F10.230 Alcohol dependence with withdrawal, uncomplicated; F17.210 Nicotine dependence, cigarettes, uncomplicated; D50.9 Iron deficiency anemia, unspecified; R21 Rash and other nonspecific skin eruption; R19.7 Diarrhea, unspecified; I44.0 Atrioventricular block, first degree; I10 Essential (primary) hypertension; L40.9 Psoriasis, unspecified
CPT/HCPCS: 36415; 70450-TC; 71010-TC; 74176-TC; 80048; 80053; 80307; 81003; 81015; 82272; 82550; 82607; 82728; 82747; 83540; 83550; 83605; 83690; 83735; 83930; 84100; 84207; 84252; 84425; 84439; 84443; 84484; 84591; 84703; 85014; 85025; 85027; 85610; 85651; 86140; 86618; 87040; 87045; 87046; 87186; 87205; 87324; 87449; 93306-TC; 99285-25; G0480; Q9967

== ENCOUNTER 2016-10-09 15:24 | Inpatient (IN) | payer OTHER ==
[2016-10-09 20:13] VITALS: BMI 24.7
--- NOTE | 2016-10-09 21:59 | HP ---
Admission ROS [facility] - [facility] Chief Complaint: i want to go to rehab Allergies/Adverse Reactions: Allergies Allergy/AdvReac Type Severity Reaction Status Date / Time No Known Allergies Allergy Verified 10/03/16 21:34 History of Present Illness: 41 years old female with long history of alcohol nicotine dependence denies medical issue denies mental illness denies suicidal attempted is admitted to rehab Exam Limitations: No Limitations - Ebola screening Have you traveled outside of the country in the last 21 days: No Have you had contact with anyone from an Ebola affected area: No Have you been sick,other than usual withdrawal symptoms: No Do you have a fever: No - Review of Systems Constitutional: No Symptoms Reported EENT: reports: No Symptoms Reported Respiratory: reports: No Symptoms reported Cardiac: reports: No Symptoms Reported GI: reports: No Symptoms Reported : reports: No Symptoms Reported Musculoskeletal: reports: No Symptoms Reported Integumentary: reports: Change in Color (buttocks legs), Erythema Neuro: reports: No Symptoms reported Endocrine: reports: No Symptoms Reported Hematology: reports: No Symptoms Reported Psychiatric: reports: Judgement Intact, Depressed Other Systems: Reviewed and Negative Patient History - Patient Medical History Hx Anemia: No Hx Asthma: No Hx Chronic Obstructive Pulmonary Disease (COPD): No Hx Cancer: No Hx Cardiac Disorders: No Hx Congestive Heart Failure: No Hx Hypertension: No Hx Hypercholesterolemia: No Hx Pacemaker: No HX Cerebrovascular Accident: No Hx Seizures: Yes (5 days ago) Hx Dementia: No Hx Diabetes: No Hx Gastrointestinal Disorders: No Hx Liver Disease: No Hx Genitourinary Disorders: No Hx Sexually Transmitted Disorders: No Hx Renal Disease (ESRD): No Hx Thyroid Disease: No Hx Human Immunodeficiency Virus (HIV): No Hx Hepatitis C: No Hx Depression: Yes Hx Suicide Attempt: No Hx Bipolar Disorder: No Hx Schizophrenia: No - Patient Surgical History Past Surgical History: Yes Hx Neurologic Surgery: No Hx Cataract Extraction: No Hx Cardiac Surgery: No Hx Lung Surgery: No Hx Breast Surgery: No Hx Breast Biopsy: No Hx Abdominal Surgery: No Hx Appendectomy: No Hx Cholecystectomy: No Hx Genitourinary Surgery: No Hx Section: Yes (age 29) Hx Orthopedic Surgery: No Anesthesia Reaction: No - PPD History Previous Implant?: Yes Documented Results: Negative w/o proof Implanted On Prior R Admission?: No PPD to be Administered?: Yes - Reproductive History Patient is a Female of Child Bearing Age (11 -55 yrs old): Yes Last Menstrual Period: 09/02/16 Patient : No - Smoking Cessation Smoking history: Current every day smoker Have you smoked in the past 12 months: Yes Aproximately how many cigarettes per day: 20 Cigars Per Day: 0 Hx Chewing Tobacco Use: No Initiated information on smoking cessation: Yes 'Breaking Loose' booklet given: 10/09/16 - Substance & Tx. History Hx Alcohol Use: Yes Hx Substance Use: No Substance Use Type: Alcohol Hx Substance Use Treatment: Yes - Substances Abused Alcohol Route: Oral Frequency: Daily Amount used: [id number] Age of first use: 29 Date of Last Use: 10/09/16 Family Disease History - Family Disease History Family Disease History: Other: Father (no contact) Admission Physical Exam S - Vital Signs Vital Signs: Vital Signs - 24 hr 10/09/16 20:11 Temperature 97.9 F Pulse Rate 102 H Respiratory 20 Rate Blood Pressure 126/89 - Physical General Appearance: Yes: Nourished, Appropriately Dressed, Tremorous, Irritable , Sweating, Anxious HEENTM: Yes: Hearing grossly Normal, Normal ENT Inspection, Normocephalic, Normal Voice Respiratory: Yes: Chest Non-Tender, Lungs Clear, Normal Breath Sounds, No Respiratory Distress, No Accessory Muscle Use Neck: Yes: Supple, Trachea in good position Breast: Yes: Breasts Symetrical Cardiology: Yes: Regular Rhythm, S1, S2, Tachycardia Abdominal: Yes: Normal Bowel Sounds, Soft Genitourinary: Yes: Within Normal Limits Back: Yes: Normal Inspection Musculoskeletal: Yes: full range of Motion, Gait Steady Extremities: Yes: Normal Range of Motion, Non-Tender Neurological: Yes: Fully Oriented, Alert, Motor Strength 5/5, Normal Mood/Affect , Normal Response Integumentary: Yes: Warm, Erythema (legs and bottocks) Lymphatic: Yes: Within Normal Limits - Diagnostic (1) Alcohol dependence with uncomplicated withdrawal Current Visit: Yes Status: Acute (2) Exfoliative syndrome Current Visit: Yes Status: Acute (3) Nicotine dependence Current Visit: Yes Status: Acute Qualifiers: Nicotine product type: cigarettes Substance use status: in withdrawal Qualified Code(s): F17.213 - Nicotine dependence, cigarettes, with withdrawal (4) Seizure Current Visit: Yes Status: Inactive Comment: alcohol related (5) Post- depression Current Visit: Yes Status: Suspected Cleared for Admission [facility] - Detox or Rehab [facility] Level of Care: Observation Bed Detox Regimen/Protocol: Not Applicable Claeared for Rehab Admission: Yes [facility] Breath Alcohol Content Breath Alcohol Content: 0.057
[2016-10-09] MEDS ORDERED: guaiFENesin/D-METHORPHAN HB 10 ML UNIT-DOSE CUPS PO PRN (22:39)
[2016-10-09] MEDS ORDERED: IBUPROFEN 400 MG TABLET (FP) PO PRN (22:39)
[2016-10-09] MEDS ORDERED: P-EPHED 60MG/TRIPROLIDI 2.5MG TABLET PO PRN (22:39)
[2016-10-09] MEDS ORDERED: NICOTINE POLACRILEX 4 MG GUM BUC PRN (22:39)
[2016-10-09] MEDS ORDERED: MAG HYDROX/AL HYDROX/SIMETH 30 ML UNIT-DOSE CUP PO PRN (22:39)
[2016-10-09] MEDS ORDERED: MAGNESIUM CITRATE 300 ML BOTTLE PO PRN (22:39)
[2016-10-09] MEDS ORDERED: MENTHOL/PHENOL 1 EACH UD MM PRN (22:39)
[2016-10-09] MEDS ORDERED: LOPERAMIDE HCL 2 MG CAPSULE PO PRN (22:39)
[2016-10-09] MEDS ORDERED: ACETAMINOPHEN 325 MG TABLET (FP) PO PRN (22:39)
[2016-10-09] MEDS ORDERED: MAGNESIUM HYDROX 2400MG/30ML ORAL SUSPENSION 30 ML CUP PO PRN (22:39)
[2016-10-09] MEDS ORDERED: COLLOIDAL OATMEAL 1 BAR EACH TP PRN (22:41)
[2016-10-09] MEDS: hydrOXYzine PAMOATE 50 MG CAPSULE (FP) PO PRN (23:34)
[2016-10-09] MEDS: cloNIDine HCL 0.1 MG TABLET PO SCH (23:34)
[2016-10-10] MEDS: PRENATAL VITAMINS W/ FOLIC ACID TABLET (FP) PO SCH (10:09)
[2016-10-10] MEDS: cloNIDine HCL 0.1 MG TABLET PO SCH ×2 (10:09→21:03)
[2016-10-10 10:10] LABS: MCH 25.5 pg (25.7-33.7); MCHC 30.7 g/dl (32.0-36.0); MEAN CELL VOLUME 82.9 fl (80-96); MEAN PLT VOLUME 6.5 fl (7.5-11.1); PLATELET COUNT 470 K/MM3 (134-434); RDW 27.3 % (11.6-15.6); WHITE BLOOD COUNT 8.8 K/mm3 (4.0-10.0)
[2016-10-10] MEDS: NICOTINE 21 MG/24 HOURS TOPICAL PATCH TD SCH (10:10)
--- NOTE | 2016-10-10 10:25 | HP ---
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, domiciled living in her rented apartment Medical History: Significant for Iron-deficiency Anemia, recent history of unconsciousness r/o SZ and history of Psychiatric History: Denies history of previous psychiatric treatment Physical/Sexual Abuse/Trauma History: Denies history of emotional, physical or sexual abuse as well as DV relationship Additional Comment: No criminal history Vital Signs: Vital Signs - 24 hr 10/09/16 10/10/16 10/10/16 20:11 00:30 06:52 Temperature 97.9 F 98.3 F Pulse Rate 102 H 90 Respiratory 20 18 18 Rate Blood Pressure 126/89 114/76 Allergies/Adverse Reactions: Allergies Allergy/AdvReac Type Severity Reaction Status Date / Time No Known Allergies Allergy Verified 10/03/16 21:34 Date of last physical exam: 10/09/16 Concur with the findings of this exam: Yes - Substance Abuse/Tx History Hx Alcohol Use: Yes Hx Substance Use: No Substance Use Type: Alcohol (Started drinking alcohol at age 29, consumes 12x 40oz daily.Last drink on 10/09/16) Hx Substance Use Treatment: Yes (first time in treatment) - Admission Criteria Previous failed treatment: Yes Poor recovery environment: Yes Comorbidities: Yes Lacks judgement: Yes Mental Status Exam - Mental Status Exam Alert and Oriented to: Time, Place, Person Cognitive Function: Fair Patient Appearance: Well Groomed Mood: Depressed Affect: Appropriate Patient Behavior: Cooperative Speech Pattern: Clear Voice Loudness: Normal Thought Process: Intact Thought Disorder: Not Present Hallucinations: Denies Suicidal Ideation: Denies Homicidal Ideation: Denies Insight/Judgement: Fair Sleep: Well Appetite: Good Muscle strength/Tone: Normal Gait/Station: Normal Psychiatric Findings - Problem List ([place] 1, 2,3) (1) Alcohol dependence with uncomplicated withdrawal Current Visit: Yes Status: Acute (2) Nicotine dependence Current Visit: Yes Status: Acute Qualifiers: Nicotine product type: cigarettes Substance use status: in withdrawal Qualified Code(s): F17.213 - Nicotine dependence, cigarettes, with withdrawal (3) Alcohol-induced mood disorder Current Visit: Yes Status: Acute (4) Alcohol-induced sleep disorder Current Visit: Yes Status: Acute (5) Exfoliative syndrome Current Visit: Yes Status: Acute (6) Gram-negative bacteremia Current Visit: No Status: Acute (7) Gram-positive bacteremia Current Visit: No Status: Acute (8) Seizure Current Visit: Yes Status: Inactive Comment: alcohol related - Initial Treatment Plan Initial Treatment Plan: Monitor progress
[2016-10-10 10:32] LABS: CALCIUM 8.6 mg/dL (8.5-10.1)
[2016-10-10 10:38] LABS: ALBUMIN 2.7 g/dl (3.4-5.0); ALK PHOS 100 U/L (45-117); ANION GAP 13 (8-16); BILIRUBIN,TOTAL 0.2 mg/dL (0.2-1.0); CO2 20 mmol/L (21-32); CREATININE 0.6 mg/dL (0.55-1.02); GLUCOSE,RANDOM 80 mg/dL (74-106); SGOT/AST 31 U/L (15-37); SGPT/ALT 45 U/L (12-78); TOT PROT 6.2 g/dl (6.4-8.2)
[2016-10-10] MEDS: hydrOXYzine PAMOATE 50 MG CAPSULE (FP) PO PRN ×3 (12:02→22:22)
--- NOTE | 2016-10-10 13:34 | EKG ---
Test Reason : Blood Pressure : / mmHG Vent. Rate : 082 BPM Atrial Rate : 082 BPM P-R Int : 284 ms QRS Dur : 076 ms QT Int : 424 ms P-R-T Axes : 038 014 024 degrees QTc Int : 495 ms SINUS RHYTHM WITH 1ST DEGREE A-V BLOCK PROLONGED QT ABNORMAL ECG WHEN COMPARED WITH ECG OF 03-OCT-2016 21:28, AL INTERVAL HAS INCREASED VENT. RATE HAS DECREASED BY 46 BPM Confirmed by SOBIA LOZANO, JENNIFER ([id number]) on 10/10/2016 1:34:08 PM Referred By: Confirmed By:JENNIFER RAMSAY MD
[2016-10-10 15:43] LABS: URINE APPEARANCE CLEAR; URINE BILIRUBIN NEGATIVE (NEGATIVE); URINE BLOOD NEGATIVE (NEGATIVE); URINE COLOR LTYELLOW; URINE GLUCOSE (UA) NEGATIVE (NEGATIVE); URINE KETONE NEGATIVE (NEGATIVE); URINE LEUK ESTERASE NEGATIVE (NEGATIVE); URINE NITRITE NEGATIVE (NEGATIVE); URINE PROTEIN NEGATIVE (NEGATIVE); URINE UROBILINOGEN NEGATIVE E.U./dl (0.2-1.0)
[2016-10-10] MEDS: diphenhydrAMINE HCL 50 MG CAPSULE PO PRN (21:03)
[2016-10-10] MEDS: MINERAL OIL/PETROLAT/WATER TOPICAL CREAM 113 GM JAR TP SCH (21:03)
[2016-10-10] MEDS: THIAMINE HCL 100 MG TABLET (FP) PO SCH (21:03)
[2016-10-11] MEDS: PRENATAL VITAMINS W/ FOLIC ACID TABLET (FP) PO SCH (10:06)
[2016-10-11] MEDS: cloNIDine HCL 0.1 MG TABLET PO SCH ×2 (10:06→21:10)
[2016-10-11] MEDS: hydrOXYzine PAMOATE 50 MG CAPSULE (FP) PO PRN ×4 (10:06→21:49)
[2016-10-11] MEDS: NICOTINE 21 MG/24 HOURS TOPICAL PATCH TD SCH (10:07)
[2016-10-11] MEDS: THIAMINE HCL 100 MG TABLET (FP) PO SCH (21:10)
[2016-10-11] MEDS: diphenhydrAMINE HCL 50 MG CAPSULE PO PRN (21:10)
[2016-10-11] MEDS: MINERAL OIL/PETROLAT/WATER TOPICAL CREAM 113 GM JAR TP SCH (21:11)
[2016-10-12] MEDS: diphenhydrAMINE HCL 50 MG CAPSULE PO PRN ×2 (00:48→21:13)
[2016-10-12] MEDS: hydrOXYzine PAMOATE 50 MG CAPSULE (FP) PO PRN ×5 (01:42→22:28)
[2016-10-12] MEDS: NICOTINE 21 MG/24 HOURS TOPICAL PATCH TD SCH (10:12)
[2016-10-12] MEDS: cloNIDine HCL 0.1 MG TABLET PO SCH ×2 (10:12→21:13)
[2016-10-12] MEDS: PRENATAL VITAMINS W/ FOLIC ACID TABLET (FP) PO SCH (10:12)
[2016-10-12] MEDS: THIAMINE HCL 100 MG TABLET (FP) PO SCH (21:13)
[2016-10-12] MEDS: MINERAL OIL/PETROLAT/WATER TOPICAL CREAM 113 GM JAR TP SCH (21:14)
[2016-10-12] MEDS ORDERED: PT OWN MED DRAWER 7, Y5N ONE (22:33)
[2016-10-13] MEDS: diphenhydrAMINE HCL 50 MG CAPSULE PO PRN ×2 (00:32→21:19)
[2016-10-13] MEDS: hydrOXYzine PAMOATE 50 MG CAPSULE (FP) PO PRN ×4 (02:33→22:25)
[2016-10-13] MEDS: cloNIDine HCL 0.1 MG TABLET PO SCH ×2 (10:11→21:19)
[2016-10-13] MEDS: NICOTINE 21 MG/24 HOURS TOPICAL PATCH TD SCH (10:11)
[2016-10-13] MEDS ORDERED: PT OWN MED DRAWER 7, Y5N ONE (10:11)
[2016-10-13] MEDS: PRENATAL VITAMINS W/ FOLIC ACID TABLET (FP) PO SCH (10:11)
[2016-10-13] MEDS: THIAMINE HCL 100 MG TABLET (FP) PO SCH (21:19)
[2016-10-13] MEDS: MINERAL OIL/PETROLAT/WATER TOPICAL CREAM 113 GM JAR TP SCH (21:20)
[2016-10-14] MEDS: diphenhydrAMINE HCL 50 MG CAPSULE PO PRN ×2 (00:33→21:32)
[2016-10-14] MEDS: hydrOXYzine PAMOATE 50 MG CAPSULE (FP) PO PRN ×4 (06:32→20:14)
[2016-10-14] MEDS: cloNIDine HCL 0.1 MG TABLET PO SCH ×2 (09:49→21:32)
[2016-10-14] MEDS: PRENATAL VITAMINS W/ FOLIC ACID TABLET (FP) PO SCH (09:49)
[2016-10-14] MEDS: NICOTINE 21 MG/24 HOURS TOPICAL PATCH TD SCH (09:49)
[2016-10-14] MEDS: THIAMINE HCL 100 MG TABLET (FP) PO SCH (21:32)
[2016-10-14] MEDS: MINERAL OIL/PETROLAT/WATER TOPICAL CREAM 113 GM JAR TP SCH (21:32)
[2016-10-15] MEDS: hydrOXYzine PAMOATE 50 MG CAPSULE (FP) PO PRN ×6 (00:09→23:19)
[2016-10-15] MEDS ORDERED: PT OWN MED DRAWER 7, Y5N ONE (08:35)
[2016-10-15] MEDS: cloNIDine HCL 0.1 MG TABLET PO SCH ×2 (10:10→21:13)
[2016-10-15] MEDS: PRENATAL VITAMINS W/ FOLIC ACID TABLET (FP) PO SCH (10:10)
[2016-10-15] MEDS: NICOTINE 21 MG/24 HOURS TOPICAL PATCH TD SCH (10:11)
[2016-10-15] MEDS: THIAMINE HCL 100 MG TABLET (FP) PO SCH (21:13)
[2016-10-15] MEDS: MINERAL OIL/PETROLAT/WATER TOPICAL CREAM 113 GM JAR TP SCH (21:13)
[2016-10-16] MEDS: hydrOXYzine PAMOATE 50 MG CAPSULE (FP) PO PRN ×5 (06:11→23:05)
[2016-10-16] MEDS: NICOTINE 21 MG/24 HOURS TOPICAL PATCH TD SCH (09:55)
[2016-10-16] MEDS: PRENATAL VITAMINS W/ FOLIC ACID TABLET (FP) PO SCH (09:55)
[2016-10-16] MEDS: cloNIDine HCL 0.1 MG TABLET PO SCH ×2 (09:56→21:36)
[2016-10-16] MEDS: diphenhydrAMINE HCL 50 MG CAPSULE PO PRN (20:38)
[2016-10-16] MEDS: THIAMINE HCL 100 MG TABLET (FP) PO SCH (21:36)
[2016-10-16] MEDS: MINERAL OIL/PETROLAT/WATER TOPICAL CREAM 113 GM JAR TP SCH (23:06)
[2016-10-17] MEDS: hydrOXYzine PAMOATE 50 MG CAPSULE (FP) PO PRN ×5 (06:18→23:05)
[2016-10-17] MEDS: NICOTINE 21 MG/24 HOURS TOPICAL PATCH TD SCH (09:47)
[2016-10-17] MEDS: PRENATAL VITAMINS W/ FOLIC ACID TABLET (FP) PO SCH (09:47)
[2016-10-17] MEDS: cloNIDine HCL 0.1 MG TABLET PO SCH ×2 (09:47→21:53)
[2016-10-17] MEDS: THIAMINE HCL 100 MG TABLET (FP) PO SCH (21:53)
[2016-10-17] MEDS: MINERAL OIL/PETROLAT/WATER TOPICAL CREAM 113 GM JAR TP SCH (22:46)
[2016-10-18] MEDS: hydrOXYzine PAMOATE 50 MG CAPSULE (FP) PO PRN ×5 (03:53→23:45)
[2016-10-18] MEDS: cloNIDine HCL 0.1 MG TABLET PO SCH ×2 (09:53→21:30)
[2016-10-18] MEDS: PRENATAL VITAMINS W/ FOLIC ACID TABLET (FP) PO SCH (09:53)
[2016-10-18] MEDS: NICOTINE 21 MG/24 HOURS TOPICAL PATCH TD SCH (09:54)
[2016-10-18] MEDS: diphenhydrAMINE HCL 50 MG CAPSULE PO PRN (21:30)
[2016-10-18] MEDS: THIAMINE HCL 100 MG TABLET (FP) PO SCH (21:30)
[2016-10-18] MEDS: MINERAL OIL/PETROLAT/WATER TOPICAL CREAM 113 GM JAR TP SCH (21:31)
[2016-10-19] MEDS: hydrOXYzine PAMOATE 50 MG CAPSULE (FP) PO PRN ×4 (06:46→23:00)
[2016-10-19] MEDS: PRENATAL VITAMINS W/ FOLIC ACID TABLET (FP) PO SCH (10:17)
[2016-10-19] MEDS: NICOTINE 21 MG/24 HOURS TOPICAL PATCH TD SCH (10:17)
[2016-10-19] MEDS: cloNIDine HCL 0.1 MG TABLET PO SCH ×2 (10:17→21:10)
[2016-10-19] MEDS: THIAMINE HCL 100 MG TABLET (FP) PO SCH (21:10)
[2016-10-19] MEDS: diphenhydrAMINE HCL 50 MG CAPSULE PO PRN (21:10)
[2016-10-19] MEDS: MINERAL OIL/PETROLAT/WATER TOPICAL CREAM 113 GM JAR TP SCH (22:25)
[2016-10-20] MEDS: hydrOXYzine PAMOATE 50 MG CAPSULE (FP) PO PRN ×5 (04:36→23:11)
[2016-10-20] MEDS: cloNIDine HCL 0.1 MG TABLET PO SCH ×2 (10:03→21:18)
[2016-10-20] MEDS: PRENATAL VITAMINS W/ FOLIC ACID TABLET (FP) PO SCH (10:03)
[2016-10-20] MEDS: NICOTINE 21 MG/24 HOURS TOPICAL PATCH TD SCH (10:03)
[2016-10-20] MEDS ORDERED: PT OWN MED DRAWER 7, Y5N ONE (15:47)
[2016-10-20] MEDS: diphenhydrAMINE HCL 50 MG CAPSULE PO PRN (21:18)
[2016-10-20] MEDS: THIAMINE HCL 100 MG TABLET (FP) PO SCH (21:18)
[2016-10-20] MEDS: MINERAL OIL/PETROLAT/WATER TOPICAL CREAM 113 GM JAR TP SCH (23:02)
[2016-10-21] MEDS: hydrOXYzine PAMOATE 50 MG CAPSULE (FP) PO PRN ×4 (06:31→22:35)
[2016-10-21] MEDS: cloNIDine HCL 0.1 MG TABLET PO SCH ×2 (10:08→21:25)
[2016-10-21] MEDS: PRENATAL VITAMINS W/ FOLIC ACID TABLET (FP) PO SCH (10:08)
[2016-10-21] MEDS: NICOTINE 21 MG/24 HOURS TOPICAL PATCH TD SCH (10:09)
[2016-10-21] MEDS: THIAMINE HCL 100 MG TABLET (FP) PO SCH (21:25)
[2016-10-21] MEDS: diphenhydrAMINE HCL 50 MG CAPSULE PO PRN (21:25)
[2016-10-21] MEDS ORDERED: PT OWN MED DRAWER 7, Y5N ONE (21:27)
[2016-10-21] MEDS: MINERAL OIL/PETROLAT/WATER TOPICAL CREAM 113 GM JAR TP SCH (21:28)
[2016-10-22] MEDS: hydrOXYzine PAMOATE 50 MG CAPSULE (FP) PO PRN ×4 (06:31→23:08)
[2016-10-22] MEDS: cloNIDine HCL 0.1 MG TABLET PO SCH ×2 (10:37→21:47)
[2016-10-22] MEDS: PRENATAL VITAMINS W/ FOLIC ACID TABLET (FP) PO SCH (10:37)
[2016-10-22] MEDS: NICOTINE 21 MG/24 HOURS TOPICAL PATCH TD SCH (10:38)
[2016-10-22] MEDS: THIAMINE HCL 100 MG TABLET (FP) PO SCH (21:47)
[2016-10-22] MEDS: diphenhydrAMINE HCL 50 MG CAPSULE PO PRN (21:47)
[2016-10-22] MEDS: MINERAL OIL/PETROLAT/WATER TOPICAL CREAM 113 GM JAR TP SCH (23:41)
[2016-10-23] MEDS: hydrOXYzine PAMOATE 50 MG CAPSULE (FP) PO PRN ×4 (06:28→23:06)
[2016-10-23] MEDS: cloNIDine HCL 0.1 MG TABLET PO SCH ×2 (09:57→21:46)
[2016-10-23] MEDS: NICOTINE 21 MG/24 HOURS TOPICAL PATCH TD SCH (09:57)
[2016-10-23] MEDS: PRENATAL VITAMINS W/ FOLIC ACID TABLET (FP) PO SCH (09:57)
[2016-10-23] MEDS ORDERED: PT OWN MED DRAWER 7, Y5N ONE (19:25)
[2016-10-23] MEDS: CLOTRIMAZOLE/BETAMET DIPROP 15 GM TUBE TP SCH (21:46)
[2016-10-23] MEDS: THIAMINE HCL 100 MG TABLET (FP) PO SCH (21:46)
[2016-10-23] MEDS: diphenhydrAMINE HCL 50 MG CAPSULE PO PRN (21:46)
[2016-10-23] MEDS: MINERAL OIL/PETROLAT/WATER TOPICAL CREAM 113 GM JAR TP SCH (21:47)
[2016-10-24] MEDS: hydrOXYzine PAMOATE 50 MG CAPSULE (FP) PO PRN ×4 (06:49→22:38)
[2016-10-24] MEDS: cloNIDine HCL 0.1 MG TABLET PO SCH ×2 (09:59→21:35)
[2016-10-24] MEDS: PRENATAL VITAMINS W/ FOLIC ACID TABLET (FP) PO SCH (09:59)
[2016-10-24] MEDS: NICOTINE 21 MG/24 HOURS TOPICAL PATCH TD SCH (10:00)
[2016-10-24] MEDS: CLOTRIMAZOLE/BETAMET DIPROP 15 GM TUBE TP SCH ×2 (10:00→21:36)
[2016-10-24] MEDS ORDERED: PT OWN MED DRAWER 7, Y5N ONE ×3 (10:00→22:39)
[2016-10-24] MEDS: THIAMINE HCL 100 MG TABLET (FP) PO SCH (21:35)
[2016-10-24] MEDS: diphenhydrAMINE HCL 50 MG CAPSULE PO PRN (21:35)
[2016-10-24] MEDS: MINERAL OIL/PETROLAT/WATER TOPICAL CREAM 113 GM JAR TP SCH (23:01)
[2016-10-25] MEDS: hydrOXYzine PAMOATE 50 MG CAPSULE (FP) PO PRN ×5 (03:09→23:09)
[2016-10-25] MEDS: PRENATAL VITAMINS W/ FOLIC ACID TABLET (FP) PO SCH (10:30)
[2016-10-25] MEDS: cloNIDine HCL 0.1 MG TABLET PO SCH ×2 (10:30→21:20)
[2016-10-25] MEDS: NICOTINE 21 MG/24 HOURS TOPICAL PATCH TD SCH (10:31)
[2016-10-25] MEDS: CLOTRIMAZOLE/BETAMET DIPROP 15 GM TUBE TP SCH ×2 (10:31→23:29)
[2016-10-25] MEDS: THIAMINE HCL 100 MG TABLET (FP) PO SCH (21:20)
[2016-10-25] MEDS: diphenhydrAMINE HCL 50 MG CAPSULE PO PRN (21:20)
[2016-10-25] MEDS: MINERAL OIL/PETROLAT/WATER TOPICAL CREAM 113 GM JAR TP SCH (23:29)
[2016-10-26] MEDS: hydrOXYzine PAMOATE 50 MG CAPSULE (FP) PO PRN ×5 (05:56→23:26)
[2016-10-26] MEDS: cloNIDine HCL 0.1 MG TABLET PO SCH ×2 (10:09→21:25)
[2016-10-26] MEDS: PRENATAL VITAMINS W/ FOLIC ACID TABLET (FP) PO SCH (10:09)
[2016-10-26] MEDS: CLOTRIMAZOLE/BETAMET DIPROP 15 GM TUBE TP SCH ×2 (10:10→21:26)
[2016-10-26] MEDS: NICOTINE 21 MG/24 HOURS TOPICAL PATCH TD SCH (10:10)
[2016-10-26] MEDS: THIAMINE HCL 100 MG TABLET (FP) PO SCH (21:25)
[2016-10-26] MEDS: diphenhydrAMINE HCL 50 MG CAPSULE PO PRN (21:25)
[2016-10-26] MEDS: MINERAL OIL/PETROLAT/WATER TOPICAL CREAM 113 GM JAR TP SCH (21:26)
[2016-10-27] MEDS: hydrOXYzine PAMOATE 50 MG CAPSULE (FP) PO PRN ×4 (08:47→22:56)
[2016-10-27] MEDS: cloNIDine HCL 0.1 MG TABLET PO SCH ×2 (10:10→21:30)
[2016-10-27] MEDS: PRENATAL VITAMINS W/ FOLIC ACID TABLET (FP) PO SCH (10:10)
[2016-10-27] MEDS: NICOTINE 21 MG/24 HOURS TOPICAL PATCH TD SCH (10:11)
[2016-10-27] MEDS: CLOTRIMAZOLE/BETAMET DIPROP 15 GM TUBE TP SCH ×2 (10:11→21:31)
[2016-10-27] MEDS: THIAMINE HCL 100 MG TABLET (FP) PO SCH (21:30)
[2016-10-27] MEDS: diphenhydrAMINE HCL 50 MG CAPSULE PO PRN (21:30)
[2016-10-27] MEDS: MINERAL OIL/PETROLAT/WATER TOPICAL CREAM 113 GM JAR TP SCH (21:31)
[2016-10-28] MEDS: hydrOXYzine PAMOATE 50 MG CAPSULE (FP) PO PRN ×5 (07:24→23:58)
--- NOTE | 2016-10-28 07:56 | PN ---
Psychiatric Progress Note Vital Signs: Vital Signs Period Temp Pulse Resp BP Sys/Mcknight Pulse Ox Last 24 Hr 99.0 F 86-88 18-18 105-113/72-77 Date of Session: 10/28/16 Chief Complaint:: Discharge Note HPI: Patient addressing Alcohol Dependence comorbid with Nicotine Dependence, Alcohol-Induced Mood Disorder and Alcohol-Induced Sleep Disorder ROS: Exfoliative syndrome, Gram-negative bacteremia, Gram-positive bacteremia, Alcohol-related seizure Current Medications: Active Medications Generic Name Dose Route Start Last Admin Trade Name Freq PRN Reason Stop Dose Admin Acetaminophen 650 mg 10/09/16 22:39 Tylenol - PO Q4H PRN PAIN Al Hydroxide/Mg Hydroxide 30 ml 10/09/16 22:39 Mylanta Oral Suspension - PO Q6H PRN DYSPEPSIA Clonidine 0.1 mg 10/09/16 22:45 10/27/16 21:30 Catapres - PO 0.1 mg BID CINTHIA Administration Clotrimazole 1 applic 10/23/16 22:00 10/27/16 21:31 Lotrisone Cream (Small Tube) TP Not Given BID CINTHIA Colloidal Oatmeal 1 applic 10/09/16 22:41 10/23/16 14:01 Aveeno Soap - TP 1 bar DAILY PRN Administration HYGEINE Diphenhydramine HCl 50 mg 10/09/16 22:39 10/27/16 21:30 Benadryl - PO 50 mg HSMR1 PRN Administration INSOMNIA Eucalyptus/Menthol/Phenol/Sorbitol 1 each 10/09/16 22:39 Cepastat Lozenge - MM Q4H PRN SORE THROAT Guaifenesin 10 ml 10/09/16 22:39 Robitussin Dm - PO Q6H PRN COUGH Hydroxyzine Pamoate 50 mg 10/09/16 22:39 10/28/16 07:24 Vistaril - PO 50 mg Q4H PRN Administration AGITATION Ibuprofen 400 mg 10/09/16 22:39 Motrin - PO Q6H PRN SEVERE PAIN Loperamide HCl 4 mg 10/09/16 22:39 Imodium - PO Q6H PRN DIARRHEA Magnesium Citrate 300 ml 10/09/16 22:39 Citroma - PO Q48H PRN CONSTIPATION Magnesium Hydroxide 30 ml 10/09/16 22:39 Milk Of Magnesia - PO DAILY PRN CONSTIPATION Multi-Ingredient Lotion 1 applic 10/10/16 22:00 10/27/16 21:31 Eucerin (Small Jar) - TP Not Given HS CINTHIA Nicotine 21 mg 10/10/16 10:00 10/27/16 10:11 Nicoderm Patch - TD Not Given DAILY CINTHIA Nicotine Polacrilex 4 mg 10/09/16 22:39 10/10/16 21:42 Nicorette Gum - BUC 4 mg Q2H PRN Administration NICOTINE REPLACEMENT RX Multivit/Folic Acid/Iron 1 tab 10/10/16 10:00 10/27/16 10:10 Vitamins (Sjr) - PO 1 tab DAILY CINTHIA Administration Pseudoephedrine/Triprolidine 1 combo 10/09/16 22:39 Actifed - PO TID PRN NASAL CONGESTION Thiamine HCl 100 mg 10/10/16 22:00 10/27/16 21:30 Vitamin B1 - PO 100 mg HS CINTHIA Administration Current Side Effect: No Lab tests ordered: Yes Lab tests reviewed: Yes Provider note:: Patient will complete this program on 10/29/16. She has met her treatment goals and will continue to address her issues in outpatient treatment at [facility]. She verbalized understanding of the negative consequences of her addiction and recognized the need to make significant changes in her life style in order to maintain sobriety. She is stable for discharge on 10/29/16 Total face to face time:: 35 Psychiatric Treatment Plan - Problem List (1) Alcohol dependence with uncomplicated withdrawal Current Visit: Yes (2) Nicotine dependence Current Visit: Yes Qualifiers: Nicotine product type: cigarettes Substance use status: in withdrawal Qualified Code(s): F17.213 - Nicotine dependence, cigarettes, with withdrawal (3) Alcohol-induced mood disorder Current Visit: Yes (4) Alcohol-induced sleep disorder Current Visit: Yes (5) Exfoliative syndrome Current Visit: Yes (6) Gram-negative bacteremia Current Visit: No (7) Gram-positive bacteremia Current Visit: No (8) Seizure Current Visit: Yes Comment: alcohol related Initial treatment plan: Patient will be discharged tomorrow and referred to outpatient treatment at [facility]
[2016-10-28] MEDS: cloNIDine HCL 0.1 MG TABLET PO SCH ×2 (10:04→21:16)
[2016-10-28] MEDS: CLOTRIMAZOLE/BETAMET DIPROP 15 GM TUBE TP SCH ×2 (10:04→21:17)
[2016-10-28] MEDS: NICOTINE 21 MG/24 HOURS TOPICAL PATCH TD SCH (10:04)
[2016-10-28] MEDS: PRENATAL VITAMINS W/ FOLIC ACID TABLET (FP) PO SCH (10:04)
[2016-10-28] MEDS: THIAMINE HCL 100 MG TABLET (FP) PO SCH (21:16)
[2016-10-28] MEDS: diphenhydrAMINE HCL 50 MG CAPSULE PO PRN (21:16)
[2016-10-28] MEDS: MINERAL OIL/PETROLAT/WATER TOPICAL CREAM 113 GM JAR TP SCH (21:17)
[2016-10-29 06:47] VITALS: BP 115/75; PULSE 89; TEMP 99.8
[2016-10-29] MEDS: hydrOXYzine PAMOATE 50 MG CAPSULE (FP) PO PRN (07:59)
[2016-10-29] MEDS: cloNIDine HCL 0.1 MG TABLET PO SCH (09:03)
[2016-10-29] MEDS ORDERED: PT OWN MED DRAWER 7, Y5N ONE (09:04)
== END 2016-10-29 09:05 | disposition home or self-care (01) | DRG 772 ==
LOC: YASAS 15:24 → Y3W 19:43
PROVIDERS: ADMIT Psychiatry & Neurology Psychiatry; ATTEND Psychiatry & Neurology Psychiatry
PROC: HZ42ZZZ Group Counseling for Substance Abuse Treatment, Cognitive-Behavioral (ICD-10-PCS; principal; 2016-10-29)
DX: F10.230 Alcohol dependence with withdrawal, uncomplicated (principal); F17.210 Nicotine dependence, cigarettes, uncomplicated; F10.24 Alcohol dependence with alcohol-induced mood disorder; F10.282 Alcohol dependence with alcohol-induced sleep disorder; G40.509 Epileptic seizures related to external causes, not intractable, without status epilepticus; F53 Mental and behavioral disorders associated with the puerperium, not elsewhere classified
CPT/HCPCS: 36415; 80053; 81003; 85027; 86593; 93005; 93010